=== PATIENT | female | born 1935 | race Caucasian/White ===

== ENCOUNTER 2018-05-21 06:30 | Emergency (ER) | payer MEDICARE, SELFPAY ==
[2018-05-21 06:46] VITALS: BP 137/77; PULSE 74; RESP 18; TEMP 36.9; O2SAT 100; BMI 23.0
--- NOTE | 2018-05-21 07:38 | ED_ITS ---
HPI - Epistaxis General Chief complaint: Nasal Problem Stated complaint: nosebleed, not on blood thinners Time Seen by Provider: 05/21/18 07:37 Source: patient Mode of arrival: ambulatory Limitations: no limitations History of Present Illness HPI Narrative: The patient developed right-sided epistaxis yesterday. She has no history of bleeding problems. She takes prophylactic baby aspirin, she is not otherwise anticoagulated. She is treated for hypertension. She has a bovine valve in place. She has no history of epistaxis. She has been unable to stop the bleeding at home with direct pressure. Related Data Home Medications Medication Instructions Recorded Confirmed conjugated estrogens [Premarin] 1 appful VAGINAL QDAY #0 11/04/16 estradiol 1 mg PO QDAY #0 11/04/16 lorazepam 0.5 mg PO TID PRN #0 11/04/16 docusate sodium 200 mg PO BID #0 11/28/16 VITAMIN D (Vitamin D3) 1,000 iu PO QDAY #0 12/24/16 tramadol 0 mg PO Q6HP PRN #0 03/25/17 melatonin 8 mg PO HS #0 06/17/17 [KRILL OIL] 500 mg PO QDAY #0 11/15/17 cephalexin 500 mg PO QID #0 11/15/17 magnesium oxide 250 mg PO #0 11/15/17 Previous Rx's Medication Instructions Recorded aspirin 81 mg PO BID #60 12/12/17 oxycodone 1 - 2 tab PO Q4-6HP PRN #90 tab 12/12/17 Allergies Allergy/AdvReac Type Severity Reaction Status Date / Time Iodine and Iodide Containing Allergy Mild HIVES Unverified 02/26/18 12:30 Produc WELTS aspirin [ASPIRIN] AdvReac Severe HX GI BLEED Unverified 02/26/18 12:30 adhesive tape [ADHESIVE TAPE] AdvReac Mild ITCH Unverified 02/26/18 12:30 codeine [CODEINE] AdvReac Mild NAUSEA/DIZZY, Unverified 02/26/18 12:30 CAN TAKE OXYCODINE, HYDROCODONE gabapentin [GABAPENTIN] AdvReac Mild DIZZINESS, Unverified 02/26/18 12:30 DIDN'T FEEL GOOD IRON INFUSION Allergy Severe ANAPHYLAXIS Uncoded 02/26/18 12:30 Review of Systems Review of Systems All systems reviewed & are unremarkable except as noted in HPI and below Constitutional Denies chills, Denies fever(s), Denies headache(s), Denies lethargy and Denies weakness Eyes Denies change in vision and Denies loss of vision ENT Ears, Nose, Mouth, and Throat: Denies facial pain, Denies headache(s), Reports epistaxis, Denies nasal congestion, Denies nasal discharge and Denies nasal trauma Cardiovascular Denies chest pain, Denies irregular heart rhythm, Denies lightheadedness, Denies palpitations and Denies orthopnea Neurologic Denies headache(s), Denies loss of vision and Denies weakness Endocrine Denies palpitations [facility] Medical History Hypertension (Acute) Surgical History History of aortic valve replacement (Acute) History of mitral valve replacement (Acute) Exam Initial Vital Signs Initial Vital Signs: Vital Signs Temperature 98.4 F 05/21/18 06:46 Pulse Rate 74 05/21/18 06:46 Respiratory Rate 18 05/21/18 06:46 Blood Pressure 137/77 H 05/21/18 06:46 Pulse Oximetry 100 05/21/18 06:46 Const General: cooperative, healthy appearing, comfortable and well developed Nutritional Appearance: well nourished Orientation: alert, awake, oriented x3 and not confused [facility] [place] Head: normal to inspection, normocephalic and atraumatic Ears: hearing grossly normal bilaterally, TM normal on the right and TM normal on the left Nose: external nose normal and nares normal ( small amount of blood in the right nares. There is a site of bleeding in the anterior septum, but no current bleeding. The left nares is normal.) Face and sinus: normal facial exam Mouth: oral mucosae normal and oropharynx normal Eyes Pupils: PERRL EOM: EOM intact bilaterally Neck Neck: normal visual inspection, trachea midline and No lymphadenopathy Procedures Epistaxis Control Time Out Performed: Yes Nostril: right Nose Prepped With: oxymetazoline Direct Inspection: yes and anterior source identified Cautery Used: silver nitrate Patient Tolerated Procedure: well Complications: other ( None) Course Orders Ordered: Discontinued Medications Oxymetazoline HCl (Afrin) 2 sprays NASAL NOW ONE Stop: 05/21/18 08:12 Last Admin: 05/21/18 08:13 Dose: 2 sprays Vital Signs - 8 hr 07/04/18 06:46 Temperature 98.4 F Pulse Rate 74 Respiratory Rate 18 Blood Pressure 137/77 H Pulse Oximetry 100 Discharge Plan Departure Patient Disposition: Home, Self-Care Clinical Impression: Acute anterior epistaxis Instructions: DI for Nosebleed Activity Restrictions/Additional Instructions: Do not take baby aspirin for the next week. There is a possibility that you may bleed again, return here if you cannot control the bleeding after 30 min of direct pressure. Prescriptions: No Action lorazepam 0.5 MG tablet 0.5 mg PO TID PRNQty: 0 RF: 0 estradiol 1 MG tablet 1 mg PO QDAY Qty: 0 RF: 0 conjugated estrogens [Premarin] 0.625 MG/GM cream 1 appful Vaginal QDAY Qty: 0 RF: 0 docusate sodium 100 MG capsule 200 mg PO BID Qty: 0 RF: 0 VITAMIN D (Vitamin D3) 1,000 iu PO QDAY Qty: 0 RF: 0 tramadol 50 MG tablet PO Q6HP PRNQty: 0 RF: 0 melatonin 5 MG tablet 8 mg PO HS Qty: 0 RF: 0 magnesium oxide 250 MG tablet 250 mg PO Qty: 0 RF: 0 [KRILL OIL] 500 mg PO QDAY Qty: 0 RF: 0 cephalexin 500 MG tablet 500 mg PO QID Qty: 0 RF: 0 aspirin 81 MG tablet,delayed release (DR/EC) 81 mg PO BID Qty: 60 RF: 0 oxycodone 5 MG tablet 1 - 2 tab PO Q4-6HP PRNQty: 90 RF: 0
[2018-05-21] MEDS: OXYMETAZOLINE NASAL SPRAY 15 ML 2 SPRAYS NASAL (08:13)
[2018-05-21 08:47] VITALS: BP 140/82; PULSE 65; RESP 14; O2SAT 96
== END 2018-05-21 09:02 | disposition home or self-care (01) ==
PROVIDERS: Emergency Provider Emergency Medicine; PCP Internal Medicine
DX: R04.0 Epistaxis (principal)
CPT/HCPCS: 17250; 30901; 99282

== ENCOUNTER → 2018-05-23 14:21 | Outpatient (CLI) | payer MEDICARE, SELFPAY ==
[2018-05-23 14:36] LABS: Add Manual Diff / Slide Review NO; Basophils Percent Auto 0.6 % (0-2); Eosinophils Percent Auto 1.6 % (2-4); Hemoglobin 11.8 g/dL (12.0-16.0); Lymphocytes Percent Auto 10.7 % (25-40); Mean Corpuscular HGB Conc 33.6 % (30-36); Mean Corpuscular Volume 98.3 fL (80-100); Neutrophils Absolute Auto 4900 /uL (3000-5900); Neutrophils Percent Auto 80.1 % (50-75); Platelet Count 179 X10^3/uL (150-400); Red Blood Cell Count 3.56 X10^6/uL (4.0-5.2); Red Cell Distribution Width 14.6 % (11.6-14.8); White Blood Cell Count 6.1 X10^3/uL (4.5-11.0)
[2018-05-23 14:55] LABS: Alanine Aminotransferase 26 IU/L (9-52); Albumin 3.9 g/dL (3.5-5.0); Albumin Globulin Ratio 1.3 (1.0-2.8); Alkaline Phosphatase 81 U/L (38-126); Aspartate Aminotransferase 37 IU/L (14-36); BUN Creatinine Ratio 23.8 (6-22); Bilirubin Total 0.5 mg/dL (0.2-1.3); Blood Urea Nitrogen 19 mg/dL (7-17); Calcium 9.2 mg/dL (8.4-10.2); Carbon Dioxide 30 mmol/L (22-32); Chloride 93 mmol/L (98-107); Estimated Glomerular Filt Rate > 60.0 mL/min (>60); Glucose 96 mg/dL (80-110); HEMOLYSIS < 15 (0-50); Potassium 4.7 mmol/L (3.4-5.1); Sodium 130 mmol/L (137-145); Total Protein 6.9 g/dL (6.3-8.2)
[2018-05-23 15:42] LABS: Erythrocyte Sedimentation Rate 10 MM/HR (0-20)
== END ==
PROVIDERS: PCP Internal Medicine; Visit Provider Nurse Practitioner Gerontology
DX: D72.810 Lymphocytopenia (principal)
CPT/HCPCS: 36415; 80053; 85025; 85651

== ENCOUNTER → 2018-05-26 14:22 | Oncology outpatient (ONC) | payer MEDICARE, SELFPAY ==
[2018-05-26 15:08] VITALS: BP 107/72; PULSE 63; RESP 18; TEMP 36.3; O2SAT 95
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
== END ==
PROVIDERS: PCP Internal Medicine; Visit Provider Nurse Practitioner Gerontology
DX: D72.810 Lymphocytopenia (principal); D72.828 Other elevated white blood cell count
CPT/HCPCS: 99214

== ENCOUNTER 2018-08-07 06:33 | Emergency (ER) | payer MEDICARE, SELFPAY ==
[2018-08-07] VITALS (8 sets, daily range): BP systolic 76–154; BP diastolic 37–95; PULSE 64–80; RESP 14–20; TEMP 36.8; O2SAT 92–98; BMI 23.4
--- NOTE | 2018-08-07 06:36 | DI.RAD.S_ITS ---
PROCEDURE: XR CHEST 1V INDICATIONS: chest pain TECHNIQUE: One view of the chest was acquired. COMPARISON: [facility], CHEST 1 VIEW, 02/12/2016, 19:58. [facility], , CHEST 2 VIEW, 04/30/2016, 13:20. [facility], , CHEST 2 VIEW, 08/03/2016, 11:05. FINDINGS: Surgical changes and devices: A pacer device is seen. cervical spine and thoracolumbar spine fixation hardware can be seen. Sternotomy wires and mediastinal clips are seen and there is aortic valve prosthesis. Cholecystectomy clips are seen. Lungs and pleura: An incomplete inspiratory result is noted, causing a crowded appearance to the lung markings. No focal infiltrates are seen. No pneumothorax or significant pleural effusions are seen. Mediastinum: The cardiac contours are within normal limits. The aorta demonstrates calcification and tortuosity. Bones and chest wall: No suspicious bony lesions. Age-appropriate bony degenerative changes are seen. Mild dextroconvex scoliotic curvature is seen. Overlying soft tissues appear unremarkable. IMPRESSION: Limited portable chest examination, without a significant cardiopulmonary abnormality identified. Postoperative and degenerative changes. Dictated by: Lavelle Orellana M.D. on 08/07/2018 at 7:49 Approved by: Lavelle Orellana M.D. on 08/07/2018 at 7:51
[2018-08-07 07:08] LABS: Prothrombin Time 11.2 SECONDS (10.1-12.7)
--- NOTE | 2018-08-07 07:09 | ED.CHESTPAIN ---
HPI - Chest Pain General Chief Complaint: Chest Pain Stated Complaint: chest pain Time Seen by Provider: 08/07/18 06:34 Source: patient and family () Mode of arrival: ambulatory Limitations: no limitations History of Present Illness HPI narrative: This is an 83-year-old female who comes to the emergency department with complaint of chest heaviness. She states she woke up at 4:00 a.m. with symptoms. It then improved, then returned improved again and then return for a 3rd time. They elected to come to the emergency department. On her walk out to the car her legs felt sort of weak but she did feel like she had any more chest pressure. She has sort of left-sided chest pressure it does not radiate to her back but does go down her left arm and side. She has had chronic left arm pain that she relates to her neck but states that this chest pressure is different. She has not been having any new shortness of breath she normally has a little bit with exertion but it has not worsened or changed. She is not having any nausea or vomiting, no diaphoresis. She has not had any other GI issues. She has not had similar symptoms in the past. No syncope or lightheadedness. Um currently it is present but very low level, she states to the will come in waves sometimes for a few minutes and then resolved. Nothing seems to exacerbated or improved in particular. Exertion and rest do not difference. She does have a history of pacemaker placed for cardiac arrhythmias after an aortic and mitral valve replacement which they used a cow valve. She takes an aspirin 81 mg daily she states she has not had her dose today. She has had multiple orthopedic surgeries including a T10 through Lumbar. Hysterectomy, partial left knee replacement and repair of a fractured femur although she no longer has hardware present.. She takes medicine for blood pressure and cholesterol, no diabetes or chronic kidney disease. She does take medication for thyroid. Her blacksmith apprentice is Dr. Abdalla through [facility] and her primary care is Dr. Brodie BLOOM complaint: chest pain Related Data Home Medications Medication Instructions Recorded Confirmed estradiol 1 mg PO QDAY #0 11/04/16 08/07/18 docusate sodium 200 mg PO BID #0 11/28/16 08/07/18 krill oil 500 mg PO QDAY #0 11/15/17 08/07/18 magnesium oxide 250 mg PO DAILY #0 11/15/17 08/07/18 aspirin 81 mg PO DAILY 05/26/18 08/07/18 atorvastatin [Lipitor] 20 mg PO DAILY 05/26/18 08/07/18 furosemide [Lasix] 20 mg PO DAILY 05/26/18 08/07/18 montelukast [Singulair] 10 mg PO QPM 05/26/18 08/07/18 acetaminophen [Tylenol Extra 2 tab PO Q6H PRN 08/07/18 08/07/18 Strength] albuterol sulfate [Ventolin HFA] 2 puff INHALATION Q4H PRN 08/07/18 08/07/18 amlodipine 5 mg PO BEDTIME 08/07/18 08/07/18 ascorbic acid (vitamin C) 250 mg PO DAILY 08/07/18 08/07/18 cholecalciferol (vitamin D3) 2,000 unit PO DAILY 08/07/18 08/07/18 [Vitamin D3] guaifenesin [Mucinex] 1 tab PO PRN PRN 08/07/18 08/07/18 ketorolac 1 drp OPHTHALMIC (EYE) DIRECTED 08/07/18 08/07/18 levothyroxine 1 tab PO 6XW 08/07/18 08/07/18 lisinopril 5 mg PO DAILY 08/07/18 08/07/18 loratadine [Claritin] 10 mg PO DAILY PRN 08/07/18 08/07/18 lorazepam 0.25 mg PO DAILY 08/07/18 08/07/18 melatonin 9 mg PO BEDTIME 08/07/18 08/07/18 metoprolol tartrate 12.5 mg PO BID 08/07/18 08/07/18 ofloxacin 1 dose OPHTHALMIC (EYE) DIRECTED 08/07/18 08/07/18 pantoprazole 40 mg PO DAILY 08/07/18 08/07/18 polymyxin B sulf-trimethoprim 1 drp OPHTHALMIC (EYE) QID 08/07/18 08/07/18 prednisolone acetate 1 dose OPHTHALMIC (EYE) DIRECTED 08/07/18 08/07/18 saliva stimulant comb. no.7 1 applic PO DIRECTED 08/07/18 08/07/18 [Biotene Oralbalance (glycerin)] saliva substitute combo no.9 15 ml PO DAILY 08/07/18 08/07/18 [Biotene Dry Mouth Oral Rinse] tramadol 25 - 50 mg PO Q8-12H PRN 08/07/18 08/07/18 Allergies Allergy/AdvReac Type Severity Reaction Status Date / Time Iodine and Iodide Containing Allergy Mild HIVES Verified 08/07/18 06:44 Produc WELTS aspirin [ASPIRIN] AdvReac Severe HX GI BLEED Verified 08/07/18 06:44 adhesive tape [ADHESIVE TAPE] AdvReac Mild ITCH Verified 08/07/18 06:44 codeine [CODEINE] AdvReac Mild NAUSEA/DIZZY, Verified 08/07/18 06:44 CAN TAKE OXYCODINE, HYDROCODONE gabapentin [GABAPENTIN] AdvReac Mild DIZZINESS, Verified 08/07/18 06:44 DIDN'T FEEL GOOD escitalopram AdvReac Verified 08/07/18 06:45 IRON INFUSION Allergy Severe ANAPHYLAXIS Uncoded 02/26/18 12:30 Review of Systems Review of Systems All systems reviewed & are unremarkable except as noted in HPI and below Constitutional Denies fever(s) ENT Ears, Nose, Mouth, and Throat: Reports neck pain (chronic) Cardiovascular Reports chest pain (pressure), Denies diaphoresis, Denies syncope, Denies rapid heart rate, Reports edema (occasionally none recently), Reports irregular heart rhythm (occasionally has pacer), Denies lightheadedness, Reports radiating jaw, neck or arm pain, Denies palpitations and Reports dyspnea on exertion (chronic no new change) Respiratory Denies change in phlegm color, Denies cough, Reports dyspnea on exertion (chronic no new change) and Denies wheezing Gastrointestinal Gastrointestinal: Denies abdominal pain, Denies change in bowel habits, Denies diarrhea, Denies nausea and Denies vomiting Musculoskeletal Reports neck pain (chronic) Neurologic Denies syncope Endocrine Denies palpitations Allergic/Immunologic Denies wheezing PFSH Medical History Dyslipidemia (Acute) Hypertension (Acute) Hypothyroid (Acute) Pacemaker (Acute) Surgical History History of aortic valve replacement (Acute) History of mitral valve replacement (Acute) Social History marital status: household members: spouse lives independently: Yes Smoking Status: Former smoker Exam Initial Vital Signs Initial Vital Signs: Vital Signs Temperature 98.2 F 08/07/18 06:48 Pulse Rate 70 08/07/18 06:48 Respiratory Rate 17 08/07/18 06:48 Blood Pressure 154/95 H 08/07/18 06:48 Pulse Oximetry 98 08/07/18 06:48 Const General: cooperative and well developed Nutritional Appearance: well nourished Orientation: alert, awake, oriented x3 and not confused Resp Effort & Inspection: normal respiratory effort, able to speak in complete sentences, no respiratory distress and no use of accessory muscles Auscultation: no bronchovesicular breath sounds, crackles (mild crackles in right base.), lung sounds not diminished, no rales, no rhonchi and no wheezes Cardio Rate: regular rate Rhythm: regular rhythm Heart Sounds: no click, no gallops, no murmurs and no rubs Pulses: normal peripheral pulses Extrem Right lower extremity: foot Details: vascular exam Details: posterior tibial pulse present Details: 2+; no edema Left lower extremity: foot Details: vascular exam Details: posterior tibial pulse present Details: 2+; no edema Course Orders Ordered: Discontinued Medications Acetaminophen (Tylenol) 975 mg PO NOW ONE Stop: 08/07/18 11:18 Last Admin: 08/07/18 12:12 Dose: 975 mg Aspirin (Aspirin) 325 mg PO NOW ONE Stop: 08/07/18 07:32 Last Admin: 08/07/18 07:38 Dose: 325 mg Nitroglycerin (Nitrostat) 0.4 mg SL [id number] PRN PRN Reason: Chest Pain Last Admin: 08/07/18 07:38 Dose: 0.4 mg Sodium Chloride (Normal Saline 0.9%) 500 ml IV NOW ONE Stop: 08/07/18 07:48 Last Admin: 08/07/18 07:49 Dose: 500 ml Tramadol HCl (Ultram) 50 mg PO NOW ONE Stop: 08/07/18 11:18 Last Admin: 08/07/18 12:13 Dose: 50 mg Reevaluation(s) Reevaluation #1: recheck after nitro SL patient chest pain did improve but her pressure dropped. Given 500cc bolus and patient is now improving. Patient states she felt very lightheaded, she denies any headache. Pressure was the 95 systolic Um as fluid boluses running in. Time: 07:55 Consultations Consultation #1: Spoke with Dr. Balderas, he will discuss with Dr. Abdalla patient's own blacksmith apprentice to help make sure she has follow-up in 24-48 hours for an stress testing. Discussed that I was concerned about unstable angina type picture but that patient did not wish to be transferred and we do not have resources her for monitoring for chest pain observation. Time: 11:57 Vital Signs - 8 hr 08/07/18 12:28 Pulse Rate 66 Respiratory Rate 14 Blood Pressure [Right Arm] 120/67 Pulse Oximetry 97 MDM - Chest Pain Differential Diagnosis Likely unstable angina pectoris, atypical chest pain, chest pain and other (NSTEMI) Lab Data Result diagrams: 08/07/18 06:48 08/07/18 06:48 Lab Results 08/07/18 08/07/18 08/07/18 Range/Units 06:48 06:48 06:48 WBC 4.9 (4.5-11.0) X10^3/uL RBC 4.31 (4.0-5.2) X10^6/uL Hgb 13.8 (12.0-16.0) g/dL Hct 40.6 (36-46) % MCV 94.2 (80-100) fL MCH 31.9 (26-34) PG MCHC 33.9 (30-36) % RDW 13.4 (11.6-14.8) % Plt Count 182 (150-400) X10^3/uL Neut % (Auto) 65.6 (50-75) % Lymph % (Auto) 21.3 L (25-40) % [place] % (Auto) 9.2 (3-14) % Eos % (Auto) 3.2 (2-4) % Baso % (Auto) 0.7 (0-2) % Neut # (Auto) 3200 (9419-1679) /uL PT 11.2 (10.1-12.7) SECONDS INR 1.0 (0.9-1.3) APTT 31 (26.4-36.2) SECONDS Sodium 136 L (137-145) mmol/L Potassium 4.8 (3.4-5.1) mmol/L Chloride 95 L (98-107) mmol/L Carbon Dioxide 32 (22-32) mmol/L BUN 17 (7-17) mg/dL Creatinine 0.80 (0.52-1.04) mg/dL Estimated GFR > 60.0 (>60) mL/min BUN/Creatinine Ratio 21.3 (6-22) Glucose 89 (80-110) mg/dL Lactate (0.7-2.1) mmol/L Calcium 10.1 (8.4-10.2) mg/dL Total Bilirubin 0.6 (0.2-1.3) mg/dL AST 37 H (14-36) IU/L ALT 24 (9-52) IU/L Alkaline Phosphatase 76 (38-126) U/L Total Creatine Kinase (30-135) U/L Troponin I 0.032 (0.01-0.034) ng/mL B-Natriuretic Peptide 281.0 H (<100) Total Protein 7.8 (6.3-8.2) g/dL Albumin 4.6 (3.5-5.0) g/dL Globulin 3.2 (1.7-4.1) g/dL Albumin/Globulin Ratio 1.4 (1.0-2.8) 08/07/18 08/07/18 Range/Units 07:50 10:00 WBC (4.5-11.0) X10^3/uL RBC (4.0-5.2) X10^6/uL Hgb (12.0-16.0) g/dL Hct (36-46) % MCV (80-100) fL MCH (26-34) PG MCHC (30-36) % RDW (11.6-14.8) % Plt Count (150-400) X10^3/uL Neut % (Auto) (50-75) % Lymph % (Auto) (25-40) % [place] % (Auto) (3-14) % Eos % (Auto) (2-4) % Baso % (Auto) (0-2) % Neut # (Auto) (9838-6416) /uL PT (10.1-12.7) SECONDS INR (0.9-1.3) APTT (26.4-36.2) SECONDS Sodium (137-145) mmol/L Potassium (3.4-5.1) mmol/L Chloride (98-107) mmol/L Carbon Dioxide (22-32) mmol/L BUN (7-17) mg/dL Creatinine (0.52-1.04) mg/dL Estimated GFR (>60) mL/min BUN/Creatinine Ratio (6-22) Glucose (80-110) mg/dL Lactate 0.7 (0.7-2.1) mmol/L Calcium (8.4-10.2) mg/dL Total Bilirubin (0.2-1.3) mg/dL AST (14-36) IU/L ALT (9-52) IU/L Alkaline Phosphatase (38-126) U/L Total Creatine Kinase 47 (30-135) U/L Troponin I 0.029 (0.01-0.034) ng/mL B-Natriuretic Peptide (<100) Total Protein (6.3-8.2) g/dL Albumin (3.5-5.0) g/dL Globulin (1.7-4.1) g/dL Albumin/Globulin Ratio (1.0-2.8) Urine Dip Bedside Urine Glucose Negative Bedside Urine Bilirubin - Negative Bedside Urine Ketone - Negative Urine Specific Catherine 1.015 Bedside Urine Occult Blood - Negative Bedside Urine pH 7.0 Bedside Urine Protein - Negative Bedside Urine Urobilinogen - Negative Bedside Urine Nitrite - Negative Bedside Urine Leukocytes - Negative Esterase Imaging Data Chest x-ray: Attestation: I personally reviewed and interpreted this imaging study as follows: My impression: The chest x-ray does not show any infiltrate or pneumothorax. Patient appears to have cardiomegaly, she has various foreign bodies consistent with her prior surgeries including back surgery, aortic and mitral valve replacement as well as pacemaker placement. In the left base patient may have a small effusion as there is some blunting of the costophrenic angle but she does have cleared a cardiomegaly which may be the cause. Patient's chest x-ray appears similar to prior from August 03, 2016. Radiologist's impression: Patient: Paula Chin [facility]#: [id number] : 1935Acct:[id number] Age/Sex: 83 / FDate of Service: 08/07/18 Loc: ED Accession Number: [id number] Procedure: XR chest 1V Ordering Provider: Francis Rivas D.O. PROCEDURE: XR CHEST 1V INDICATIONS: chest pain TECHNIQUE: One view of the chest was acquired. COMPARISON: [facility], CHEST 1 VIEW, 02/12/2016, 19:58. [facility], CHEST 2 VIEW, 04/30/2016, 13:20. [facility], CHEST 2 VIEW, 08/03/2016, 11:05. FINDINGS: Surgical changes and devices: A pacer device is seen. cervical spine and thoracolumbar spine fixation hardware can be seen. Sternotomy wires and mediastinal clips are seen and there is aortic valve prosthesis. Cholecystectomy clips are seen. Lungs and pleura: An incomplete inspiratory result is noted, causing a crowded appearance to the lung markings. No focal infiltrates are seen. No pneumothorax or significant pleural effusions are seen. Mediastinum: The cardiac contours are within normal limits. The aorta demonstrates calcification and tortuosity. Bones and chest wall: No suspicious bony lesions. Age-appropriate bony degenerative changes are seen. Mild dextroconvex scoliotic curvature is seen. Overlying soft tissues appear unremarkable. IMPRESSION: Limited portable chest examination, without a significant cardiopulmonary abnormality identified. Postoperative and degenerative changes. Dictated by: Lavelle Orellana M.D. on 08/07/2018 at 7:49 Approved by: Lavelle Orellana M.D. on 08/07/2018 at 7:51 ECG Data Attestation: I personally reviewed and interpreted this ECG as follows: Interpretation: EKG #1 This is atrial paced rhythm with a rate of 68, P are of 360, QRS of 134 and Q Tc of 432. Patient appears to have a right bundle branch block with Q in V1 and V2 and T-wave were of more maladies in V1 through V5. Patient also has a prior EKG from 11/04/2016 which appears similar except for the T-wave inversion in the or V5 with present prior. EKG#2 shows AA sinus rhythm with first-degree block with a rate of 65, P are 310, QRS of 127 and a QTC of 440. Patient appears to have a right bundle branch block with Q-waves in V1 and V2. She also appears to have no new ST segment changes in comparison to her prior EKG this morning. MDM Narrative Medical decision making narrative: Patient story is concerning for unstable angina. She is asymptomatic at this time but we did discuss transfer as we do not have the option for chest pain observation here at [facility]. Patient was notified that we check [facility] does not have any beds. We did try to contact [facility] in [place] and they did not have. Patient defers transfer for S evaluating other hospitals for availability and would prefer to do repeat troponin and close follow up with cardiology. We Discussed that I do not recommend this and that we cannot rule out cardiac causes. Patient is aware. We did contact her cardiology team to set up stress testing the next 24 hr. Patient is to call and let them know but Dr. Balderas will also notify her blacksmith apprentice. Discharge Plan Departure Patient Disposition: Home Clinical Impression: Chest pain Discharge Date/Time: 08/07/18 13:06 Interventions: ED Discharge Assessment Last Done: 08/07/18 13:05 Instructions: DI for Chest Pain Activity Restrictions/Additional Instructions: Follow-up in the next 24 hr with your blacksmith apprentice for recheck. I do recommend that you get a stress test in the last 24-48 hours particularly with her symptoms being concerning for unstable angina. Your lab work got does not show an elevation in troponin or new EKG changes today. Call the cardiology office this afternoon to set up a follow-up appointment time. Continue your home medications as prescribed continue her aspirin daily. Return to the emergency department immediately for recurrent symptoms, syncope, increasing or new chest pain or shortness of breath, persistent vomiting or diaphoresis. Prescriptions: No Action estradiol 1 MG tablet 1 mg PO QDAY Qty: 0 RF: 0 docusate sodium 100 MG capsule 200 mg PO BID Qty: 0 RF: 0 magnesium oxide 250 MG tablet 250 mg PO DAILY Qty: 0 RF: 0 krill oil 500 mg Capsule 500 mg PO QDAY Qty: 0 RF: 0 aspirin 81 MG tablet,delayed release (DR/EC) 81 mg PO DAILY RF: 0 atorvastatin [Lipitor] 20 mg Tablet 20 mg PO DAILY RF: 0 furosemide [Lasix] 20 mg Tablet 20 mg PO DAILY RF: 0 montelukast [Singulair] 10 mg Tablet 10 mg PO QPM RF: 0 ofloxacin 0.3 % drops 1 dose ophthalmic (eye) DIRECTED RF: 0 tramadol 50 mg tablet 25 - 50 mg PO Q8-12H PRN (Reason: Back Pain) RF: 0 ketorolac 0.5 % drops 1 drp ophthalmic (eye) DIRECTED RF: 0 prednisolone acetate 1 % drops,suspension 1 dose ophthalmic (eye) DIRECTED RF: 0 lorazepam 0.5 mg tablet 0.25 mg PO DAILY RF: 0 pantoprazole 40 mg tablet,delayed release (DR/EC) 40 mg PO DAILY RF: 0 polymyxin B sulf-trimethoprim 10,000 unit- 1 mg/mL drops 1 drp ophthalmic (eye) QID RF: 0 lisinopril 5 mg tablet 5 mg PO DAILY RF: 0 albuterol sulfate [Ventolin HFA] 90 mcg/actuation HFA aerosol inhaler 2 puff Inhalation Q4H PRN (Reason: Shortness Of Breath) RF: 0 metoprolol tartrate 25 mg tablet 12.5 mg PO BID RF: 0 melatonin 9 mg PO BEDTIME RF: 0 amlodipine 5 mg Tablet 5 mg PO BEDTIME RF: 0 acetaminophen [Tylenol Extra Strength] 500 mg Tablet 2 tab PO Q6H PRN (Reason: Pain, Moderate) RF: 0 levothyroxine 75 mcg tablet 1 tab PO 6XW RF: 0 ascorbic acid (vitamin C) 250 mg Tablet 250 mg PO DAILY RF: 0 loratadine [Claritin] 10 mg Tablet 10 mg PO DAILY PRN (Reason: Allergy Symptoms) RF: 0 cholecalciferol (vitamin D3) [Vitamin D3] 1,000 unit Tablet 2,000 unit PO DAILY RF: 0 guaifenesin [Mucinex] 600 mg Tablet Extended Release 12hr 1 tab PO PRN PRN (Reason: Congestion) RF: 0 saliva substitute combo no.9 [Biotene Dry Mouth Oral Rinse] Mouthwash 15 ml PO DAILY RF: 0 saliva stimulant comb. no.7 [Biotene Oralbalance (glycerin)] Gel 1 applic PO DIRECTED RF: 0 Referrals: Arnol Kc MD [Primary Care Provider] - Tyler Tobar MD [Physician] -
[2018-08-07 07:11] LABS: PTT Partial Thromboplastin Tim 31 SECONDS (26.4-36.2)
[2018-08-07 07:13] LABS: Alanine Aminotransferase 24 IU/L (9-52); Albumin 4.6 g/dL (3.5-5.0); Albumin Globulin Ratio 1.4 (1.0-2.8); Alkaline Phosphatase 76 U/L (38-126); Aspartate Aminotransferase 37 IU/L (14-36); BUN Creatinine Ratio 21.3 (6-22); Bilirubin Total 0.6 mg/dL (0.2-1.3); Blood Urea Nitrogen 17 mg/dL (7-17); Calcium 10.1 mg/dL (8.4-10.2); Carbon Dioxide 32 mmol/L (22-32); Chloride 95 mmol/L (98-107); Estimated Glomerular Filt Rate > 60.0 mL/min (>60); Globulin 3.2 g/dL (1.7-4.1); Glucose 89 mg/dL (80-110); HEMOLYSIS < 15 (0-50); Potassium 4.8 mmol/L (3.4-5.1); Sodium 136 mmol/L (137-145); Total Protein 7.8 g/dL (6.3-8.2)
[2018-08-07 07:15] LABS: Add Manual Diff / Slide Review NO; Basophils Percent Auto 0.7 % (0-2); Eosinophils Percent Auto 3.2 % (2-4); Hematocrit 40.6 % (36-46); Hemoglobin 13.8 g/dL (12.0-16.0); Lymphocytes Percent Auto 21.3 % (25-40); Mean Corpuscular HGB Conc 33.9 % (30-36); Mean Corpuscular Hemoglobin 31.9 PG (26-34); Mean Corpuscular Volume 94.2 fL (80-100); Monocytes Percent Auto 9.2 % (3-14); Neutrophils Absolute Auto 3200 /uL (3000-5900); Neutrophils Percent Auto 65.6 % (50-75); Platelet Count 182 X10^3/uL (150-400); Red Blood Cell Count 4.31 X10^6/uL (4.0-5.2); Red Cell Distribution Width 13.4 % (11.6-14.8); White Blood Cell Count 4.9 X10^3/uL (4.5-11.0)
[2018-08-07 07:24] LABS: Troponin I 0.032 ng/mL (0.01-0.034)
[2018-08-07] MEDS: ASPIRIN 325 MG TABLET PO (07:38)
[2018-08-07] MEDS: NITROGLYCERIN 0.4 MG SL TAB SL (07:38)
[2018-08-07] MEDS: SODIUM CHLORIDE 0.9% 100 ML 500 ML IV (07:49)
--- NOTE | 2018-08-07 07:50 | PC.NURSE ---
Nitro Sl helped pts pain but caused decreased BP 76/37. Fluids per VO
[2018-08-07 08:14] LABS: Lactate (Lactic Acid) 0.7 mmol/L (0.7-2.1)
--- NOTE | 2018-08-07 09:18 | PC.NURSE ---
Resting in room. Stable. Use of commode. Will have repeat Trop and ekg at 10am
[2018-08-07 11:14] LABS: Creatine Kinase 47 U/L (30-135)
[2018-08-07 11:27] LABS: Troponin I 0.029 ng/mL (0.01-0.034)
[2018-08-07] MEDS: ACETAMINOPHEN 325 MG TABLET 975 MG PO (12:12)
[2018-08-07] MEDS: TRAMADOL 50 MG TABLET PO (12:13)
== END 2018-08-07 13:06 | disposition home or self-care (01) ==
PROVIDERS: Emergency Medicine; Emergency Provider Emergency Medicine; PCP Internal Medicine
DX: R07.89 Other chest pain (principal)
CPT/HCPCS: 36415; 36591; 71045; 80053; 81003; 82550; 82553; 83605; 83880; 84484; 85025; 85610; 85730; 93005; 96374; 99283; 99285

== ENCOUNTER → 2019-02-17 12:38 | Outpatient (CLI) | payer MEDICARE, SELFPAY ==
--- NOTE | 2019-02-17 | DI.RAD.S_ITS ---
PROCEDURE: FL UPPER GI W AIR INDICATIONS: GERD COMPARISON: [facility], CT, CT ANGIO CHEST PE, 12/28/2017, 2:21. [facility], CR, XR CHEST 1V, 08/07/2018, 6:39. FINDINGS: KUB: Preprocedural wellness program coordinator film demonstrates a normal bowel gas pattern. No suspicious abdominal calcifications. Visualized solid organ contours appear normal. Bony structures appear unremarkable. Note is made of upper thoracic spine fusion and thoracolumbar spine fusion. Severe scoliosis. There is a cardiac pacemaker. Patient had a sternotomy and a cardiac valve prosthesis. Esophagus: Esophageal mucosa is normal on air-contrast views. On single-contrast views, there is severe esophageal dysmotility with corkscrew appearance. The gastroesophageal junction appears narrowed. No diverticula. There is a small paraesophageal hiatal hernia . No elicited gastroesophageal reflux. There is obstruction of calibrated barium tablet at the esophagus. Stomach: The stomach is normally distensible, with normal rugal fold thickness. No mucosal masses or ulcers. Pylorus and duodenal bulb appear normal in morphology. Duodenal folds are normal in thickness as well. IMPRESSION: 1. Limited examination due to multiple surgical hardware. 2. Severe esophageal dysmotility. 3. There is narrowing at the gastroesophageal junction and obstruction of calibrated barium tablet. This may be secondary to stricture or obstructing mass. Recommend upper endoscopy for followup evaluation. 4. Small paraesophageal hiatal hernia. Dictated by: Sylvie Kirby M.D. on 02/17/2019 at 14:29 Approved by: Sylvie Kirby M.D. on 02/17/2019 at 17:51
== END ==
PROVIDERS: PCP Physician Assistant; Visit Provider Physician Assistant
DX: K21.9 Gastro-esophageal reflux disease without esophagitis (principal); K22.4 Dyskinesia of esophagus; K44.9 Diaphragmatic hernia without obstruction or gangrene
CPT/HCPCS: 74247

== ENCOUNTER → 2019-03-18 12:18 | Outpatient (CLI) | payer MEDICARE, SELFPAY ==
[2019-03-18 14:19] LABS: Clostridium Difficile Tox PCR Negative for C. diff
== END ==
PROVIDERS: PCP Physician Assistant; Visit Provider Physician Assistant
DX: R19.7 Diarrhea, unspecified (principal)
CPT/HCPCS: 87045; 87177; 87493; 87899

== ENCOUNTER 2019-03-23 14:28 | Emergency (ER) | payer MEDICARE, SELFPAY ==
[2019-03-23 14:31] VITALS: BP 160/91; PULSE 67; RESP 20; TEMP 36.7; O2SAT 96
--- NOTE | 2019-03-23 16:37 | ED_ITS ---
HPI - Nausea/Vomiting/Diarrhea General Chief complaint: Nausea/Vomiting/Diarrhea Stated complaint: dehydrated Time Seen by Provider: 03/23/19 16:37 Source: patient Mode of arrival: ambulatory Limitations: no limitations History of Present Illness HPI Narrative: Patient is an 84-year-old female who was sent over by her primary doctor for IV fluid secondary to ?dehydration? patient states that she has had diarrhea for the past month. She states that her primary doctor has been working her up for this. Does not appear to be an infectious etiology. The patient states she thinks it is ?dietary ?she is still tolerating oral intake. Was here for IV fluids. Related Data Home Medications Medication Instructions Recorded Confirmed estradiol 1 mg PO DAILY #0 11/04/16 03/23/19 krill oil 500 mg PO DAILY #0 11/15/17 03/23/19 aspirin 81 mg PO BID 05/26/18 03/23/19 atorvastatin [Lipitor] 20 mg PO DAILY 05/26/18 03/23/19 furosemide [Lasix] 40 mg PO QAM 05/26/18 03/23/19 montelukast [Singulair] 10 mg PO QPM 05/26/18 03/23/19 acetaminophen [Tylenol Extra 1 tab PO BID 08/07/18 03/23/19 Strength] albuterol sulfate [Ventolin HFA] 2 puff INHALATION Q4H PRN 08/07/18 03/23/19 ascorbic acid (vitamin C) 250 mg PO DAILY 08/07/18 03/23/19 levothyroxine 1 tab PO 6XW 08/07/18 03/23/19 lorazepam See Rx Instructions .ROUTE .COMPLEX 08/07/18 03/23/19 metoprolol tartrate 25 mg PO BID 08/07/18 03/23/19 pantoprazole 40 mg PO DAILY 08/07/18 03/23/19 Hair,Skin and Nails 1 cap PO DAILY 03/23/19 03/23/19 Probiotic 1 cap PO DAILY 03/23/19 03/23/19 Turmeric 500mg/Stefania 50mg 1 cap PO QAM 03/23/19 03/23/19 cholecalciferol (vitamin D3) 1,000 unit PO DAILY 03/23/19 03/23/19 [Vitamin D3] cyanocobalamin (vitamin B-12) 5,000 mcg SUBLINGUAL DAILY 03/23/19 03/23/19 [Vitamin B-12] hydrocodone-acetaminophen 1 tab PO TID 03/23/19 03/23/19 magnesium glycinate 200 mg PO BID 03/23/19 03/23/19 melatonin 10 mg PO BEDTIME PRN 03/23/19 03/23/19 rosuvastatin 5 mg PO DAILY 03/23/19 03/23/19 saliva substitute combo no.9 1 dose PO PRN PRN 03/23/19 03/23/19 [Biotene Dry Mouth Oral Rinse] Allergies Allergy/AdvReac Type Severity Reaction Status Date / Time Iodine and Iodide Containing Allergy Mild HIVES Verified 08/07/18 06:44 Produc WELTS aspirin [ASPIRIN] AdvReac Severe HX GI BLEED Verified 08/07/18 06:44 adhesive tape [ADHESIVE TAPE] AdvReac Mild ITCH Verified 08/07/18 06:44 codeine [CODEINE] AdvReac Mild NAUSEA/DIZZY, Verified 08/07/18 06:44 CAN TAKE OXYCODINE, HYDROCODONE gabapentin [GABAPENTIN] AdvReac Mild DIZZINESS, Verified 08/07/18 06:44 DIDN'T FEEL GOOD escitalopram AdvReac Verified 08/07/18 06:45 IRON INFUSION Allergy Severe ANAPHYLAXIS Uncoded 02/26/18 12:30 Review of Systems Constitutional Denies fever(s) Cardiovascular Denies chest pain and Denies dyspnea Respiratory Denies dyspnea Gastrointestinal Gastrointestinal: Denies abdominal pain, Reports diarrhea, Denies nausea and Denies vomiting Musculoskeletal Denies myalgias and Denies arthralgias Integumentary/Breasts Denies rash Neurologic Denies behavioral changes Psychiatric Denies behavioral changes Hematologic/Lymphatic Denies easy bleeding and Denies easy bruising [facility] Medical History Dyslipidemia (Acute) Hypertension (Acute) Hypothyroid (Acute) Pacemaker (Acute) Surgical History (Updated 05/26/18 @ 15:35 by MOHINDER Aleman) History of aortic valve replacement (Acute) History of mitral valve replacement (Acute) Social History marital status: household members: spouse lives independently: Yes Smoking Status: Former smoker Social History (Reviewed 03/23/19 @ 18:31 by COBY Li marital status: household members: spouse lives independently: Yes Smoking Status: Former smoker Exam Initial Vital Signs Initial Vital Signs: Vital Signs Temperature 98.1 F 03/23/19 14:31 Pulse Rate 67 03/23/19 14:31 Respiratory Rate 20 03/23/19 14:31 Blood Pressure 160/91 H 03/23/19 14:31 Pulse Oximetry 96 03/23/19 14:31 Const General: cooperative, well developed, well groomed and No acute distress Orientation: alert and awake HENMT Head: normal to inspection Resp Effort & Inspection: normal respiratory effort Cardio Rate: regular rate GI Inspection: non-distended Palpation: soft Skin Lesions: no lesions Rashes: no rashes Neuro General: alert and awake Cognition: normal cognition Speech: speech normal Psych Appearance: well kempt Mental Status: mental status grossly normal Attitude: cooperative Thought Content: normal Course Orders Ordered: ED Orders 03/23/19 16:45 Basic Metabolic Panel Stat Complete Blood Count AUTO DIFF Stat Discontinued Medications Sodium Chloride (Normal Saline 0.9%) 1,000 mls @ 1,000 mls/hr IV BOLUS ONE Stop: 03/23/19 17:39 Vital Signs - 8 hr 03/23/19 14:31 03/23/19 18:17 Temperature 98.1 F Pulse Rate 67 59 L Respiratory Rate 20 Blood Pressure 160/91 H Blood Pressure [Right Arm] 143/101 H Pulse Oximetry 96 97 MDM - Nausea/Vomiting/Diarrhea Lab Data Attestation: I reviewed the patient's lab results. Result diagrams: 03/23/19 16:45 03/23/19 16:45 Lab Results 03/23/19 03/23/19 Range/Units 16:45 16:45 WBC 6.9 (4.5-11.0) X10^3/uL RBC 4.71 (4.0-5.2) X10^6/uL Hgb 13.6 (12.0-16.0) g/dL Hct 42.7 (36-46) % MCV 90.6 (80-100) fL MCH 28.8 (26-34) PG MCHC 31.7 (30-36) % RDW 15.5 H (11.6-14.8) % Plt Count 264 (150-400) X10^3/uL Neut % (Auto) 83.1 H (50-75) % Lymph % (Auto) 9.0 L (25-40) % [place] % (Auto) 5.9 (3-14) % Eos % (Auto) 1.3 L (2-4) % Baso % (Auto) 0.7 (0-2) % Neut # (Auto) 5700 (8631-6524) /uL Lymph # (Auto) 600 L (9816-5176) /uL [place] # (Auto) 400 (0-900) /uL Eos # (Auto) 100 (0-450) /uL Baso # (Auto) 0 (0-100) /uL Sodium 132 L (137-145) mmol/L Potassium 5.1 (3.4-5.1) mmol/L Chloride 91 L (98-107) mmol/L Carbon Dioxide 33 H (22-32) mmol/L BUN 18 H (7-17) mg/dL Creatinine 0.80 (0.52-1.04) mg/dL Estimated GFR > 60.0 (>60) mL/min BUN/Creatinine Ratio 22.5 H (6-22) Glucose 105 (80-110) mg/dL Calcium 9.6 (8.4-10.2) mg/dL MDM Narrative Medical decision making narrative: Patient was given IV fluids here in the emergency department. Labs were drawn for completeness of workup. She has had diarrhea for the past month however is being worked up for this by her primary doctor. She is tolerating oral intake. Will hold on further workup for now. Patient was given return precautions and follow-up instructions. Discharge Plan Departure Patient Disposition: Home Clinical Impression: Diarrhea Qualifiers: Diarrhea type: unspecified type Qualified Code(s): R19.7 - Diarrhea, unspecified Instructions: Diarrhea (Alternative Therapy) Activity Restrictions/Additional Instructions: Continue to take all of your medications as directed. Continue to keep all of your follow-up appointments with your primary provider. Return to the emergency department for any new or worsening symptoms Prescriptions: No Action estradiol 1 MG tablet 1 mg PO DAILY Qty: 0 RF: 0 krill oil 500 mg Capsule 500 mg PO DAILY Qty: 0 RF: 0 hydrocodone-acetaminophen 5-325 mg tablet 1 tab PO TID RF: 0 rosuvastatin 5 mg tablet 5 mg PO DAILY RF: 0 cholecalciferol (vitamin D3) [Vitamin D3] 1,000 unit Capsule 1,000 unit PO DAILY RF: 0 magnesium glycinate 100 mg Tablet 200 mg PO BID RF: 0 Vitamin B-12 5,000 mcg Tablet, Sublingual 5,000 mcg Sublingual DAILY RF: 0 melatonin 10 mg Tablet 10 mg PO BEDTIME PRN (Reason: Sleep) RF: 0 Biotene Dry Mouth Oral Rinse Mouthwash 1 dose PO PRN PRN (Reason: Dry Mouth) RF: 0 Hair,Skin and Nails 1 cap PO DAILY RF: 0 Probiotic 1 cap PO DAILY RF: 0 Turmeric 500mg/Stefania 50mg capsule 1 cap PO QAM RF: 0 aspirin 81 MG tablet,delayed release (DR/EC) 81 mg PO BID RF: 0 atorvastatin [Lipitor] 20 mg Tablet 20 mg PO DAILY RF: 0 furosemide [Lasix] 20 mg Tablet 40 mg PO QAM RF: 0 montelukast [Singulair] 10 mg Tablet 10 mg PO QPM RF: 0 lorazepam 0.5 mg tablet See Rx Instructions .ROUTE .COMPLEX RF: 0 pantoprazole 40 mg tablet,delayed release (DR/EC) 40 mg PO DAILY RF: 0 albuterol sulfate [Ventolin HFA] 90 mcg/actuation HFA aerosol inhaler 2 puff Inhalation Q4H PRN (Reason: Shortness Of Breath) RF: 0 metoprolol tartrate 25 mg tablet 25 mg PO BID RF: 0 acetaminophen [Tylenol Extra Strength] 500 mg Tablet 1 tab PO BID RF: 0 levothyroxine 75 mcg tablet 1 tab PO 6XW RF: 0 ascorbic acid (vitamin C) 250 mg Tablet 250 mg PO DAILY RF: 0 Referrals: Annelise Calloway PA-C [Primary Care Provider] -
[2019-03-23 16:59] LABS: Add Manual Diff / Slide Review NO; Basophils Absolute Auto 0 /uL (0-100); Basophils Percent Auto 0.7 % (0-2); Eosinophils Absolute Auto 100 /uL (0-450); Eosinophils Percent Auto 1.3 % (2-4); Hematocrit 42.7 % (36-46); Hemoglobin 13.6 g/dL (12.0-16.0); Lymphocytes Absolute Auto 600 /uL (1100-4500); Mean Corpuscular HGB Conc 31.7 % (30-36); Mean Corpuscular Hemoglobin 28.8 PG (26-34); Mean Corpuscular Volume 90.6 fL (80-100); Monocytes Absolute Auto 400 /uL (0-900); Monocytes Percent Auto 5.9 % (3-14); Neutrophils Absolute Auto 5700 /uL (1500-7000); Neutrophils Percent Auto 83.1 % (50-75); Platelet Count 264 X10^3/uL (150-400); Red Blood Cell Count 4.71 X10^6/uL (4.0-5.2); Red Cell Distribution Width 15.5 % (11.6-14.8); White Blood Cell Count 6.9 X10^3/uL (4.5-11.0)
[2019-03-23 17:04] LABS: BUN Creatinine Ratio 22.5 (6-22); Blood Urea Nitrogen 18 mg/dL (7-17); Calcium 9.6 mg/dL (8.4-10.2); Carbon Dioxide 33 mmol/L (22-32); Chloride 91 mmol/L (98-107); Estimated Glomerular Filt Rate > 60.0 mL/min (>60); Glucose 105 mg/dL (80-110); HEMOLYSIS 17 (0-50); Potassium 5.1 mmol/L (3.4-5.1); Sodium 132 mmol/L (137-145)
[2019-03-23] MEDS: SODIUM CHLORIDE 0.9% 1,000 ML 1000 ML IV (17:45)
[2019-03-23 18:17] VITALS: BP 143/101; PULSE 59; O2SAT 97
[2019-03-23 18:43] VITALS: BP 167/91; PULSE 64; RESP 12; O2SAT 94
== END 2019-03-23 18:43 | disposition home or self-care (01) ==
PROVIDERS: Emergency Provider Emergency Medicine; PCP Physician Assistant
DX: R19.7 Diarrhea, unspecified (principal); E86.0 Dehydration
CPT/HCPCS: 36591; 80048; 85025; 96360; 99283

== ENCOUNTER → 2019-05-12 13:43 | Outpatient (CLI) | payer MEDICARE, SELFPAY ==
[2019-05-12 15:00] LABS: Add Manual Diff / Slide Review NO; Basophils Absolute Auto 0 /uL (0-100); Basophils Percent Auto 0.8 % (0-2); Eosinophils Absolute Auto 100 /uL (0-450); Eosinophils Percent Auto 1.9 % (2-4); Hematocrit 41.2 % (36-46); Hemoglobin 13.3 g/dL (12.0-16.0); Lymphocytes Absolute Auto 600 /uL (1100-4500); Lymphocytes Percent Auto 10.4 % (25-40); Mean Corpuscular HGB Conc 32.3 % (30-36); Mean Corpuscular Hemoglobin 28.6 PG (26-34); Mean Corpuscular Volume 88.5 fL (80-100); Monocytes Absolute Auto 400 /uL (0-900); Monocytes Percent Auto 7.2 % (3-14); Neutrophils Absolute Auto 4700 /uL (1500-7000); Neutrophils Percent Auto 79.7 % (50-75); Platelet Count 240 X10^3/uL (150-400); Red Blood Cell Count 4.66 X10^6/uL (4.0-5.2); Red Cell Distribution Width 15.7 % (11.6-14.8); White Blood Cell Count 5.9 X10^3/uL (4.5-11.0)
[2019-05-12 15:21] LABS: Alanine Aminotransferase 18 IU/L (9-52); Albumin 4.2 g/dL (3.5-5.0); Albumin Globulin Ratio 1.1 (1.0-2.8); Alkaline Phosphatase 120 U/L (38-126); Amylase 69 U/L (30-110); Aspartate Aminotransferase 45 IU/L (14-36); BUN Creatinine Ratio 27.5 (6-22); Bilirubin Total 0.5 mg/dL (0.2-1.3); Blood Urea Nitrogen 22 mg/dL (7-17); Calcium 9.7 mg/dL (8.4-10.2); Carbon Dioxide 33 mmol/L (22-32); Chloride 91 mmol/L (98-107); Estimated Glomerular Filt Rate > 60.0 mL/min (>60); Globulin 3.7 g/dL (1.7-4.1); Glucose 106 mg/dL (80-110); HEMOLYSIS < 15 (0-50); Lipase 47 U/L (23-300); Potassium 4.8 mmol/L (3.4-5.1); Sodium 133 mmol/L (137-145); Total Protein 7.9 g/dL (6.3-8.2)
[2019-05-12 15:32] LABS: B Type Natriuretic Peptide 411 (<100)
== END ==
PROVIDERS: PCP Internal Medicine; Visit Provider Internal Medicine
DX: I48.2 Chronic atrial fibrillation (principal); R13.10 Dysphagia, unspecified; E87.5 Hyperkalemia; E87.1 Hypo-osmolality and hyponatremia
CPT/HCPCS: 36415; 80053; 82150; 82728; 83690; 83880; 85025

== ENCOUNTER → 2019-06-04 15:53 | Outpatient (CLI) | payer MEDICARE, SELFPAY ==
[2019-06-04 16:41] LABS: Add Manual Diff / Slide Review NO; Basophils Absolute Auto 100 /uL (0-100); Eosinophils Absolute Auto 100 /uL (0-450); Hematocrit 39.9 % (36-46); Hemoglobin 12.8 g/dL (12.0-16.0); Lymphocytes Absolute Auto 500 /uL (1100-4500); Lymphocytes Percent Auto 8.4 % (25-40); Mean Corpuscular HGB Conc 32.1 % (30-36); Mean Corpuscular Hemoglobin 28.6 PG (26-34); Mean Corpuscular Volume 89.1 fL (80-100); Monocytes Absolute Auto 500 /uL (0-900); Neutrophils Absolute Auto 5000 /uL (1500-7000); Neutrophils Percent Auto 81.6 % (50-75); Platelet Count 211 X10^3/uL (150-400); Red Blood Cell Count 4.48 X10^6/uL (4.0-5.2); Red Cell Distribution Width 15.7 % (11.6-14.8); White Blood Cell Count 6.1 X10^3/uL (4.5-11.0)
[2019-06-04 17:12] LABS: B Type Natriuretic Peptide 769 (<100)
[2019-06-04 17:53] LABS: Sodium Urine Random 59 mmol/L (30-90)
[2019-06-04 17:55] LABS: BUN Creatinine Ratio 31.4 (6-22); Blood Urea Nitrogen 22 mg/dL (7-17); Calcium 9.9 mg/dL (8.4-10.2); Carbon Dioxide 34 mmol/L (22-32); Chloride 91 mmol/L (98-107); Estimated Glomerular Filt Rate > 60.0 mL/min (>60); Glucose 108 mg/dL (80-110); HEMOLYSIS < 15 (0-50); Sodium 133 mmol/L (137-145)
[2019-06-06 15:50] LABS: Osmolality Urine 258 mOsm/kg (50-1200)
[2019-06-09 17:03] LABS: Osmolality, Serum 283 mosm/kg (260-310)
== END ==
PROVIDERS: PCP Internal Medicine; Visit Provider Internal Medicine
DX: E22.2 Syndrome of inappropriate secretion of antidiuretic hormone (principal); I51.89 Other ill-defined heart diseases; D63.8 Anemia in other chronic diseases classified elsewhere
CPT/HCPCS: 36415; 80048; 83880; 83930; 83935; 84300; 85025

== ENCOUNTER → 2019-06-15 14:06 | Outpatient (CLI) | payer MEDICARE, SELFPAY ==
--- NOTE | 2019-06-15 | DI.CT.S_ITS ---
PROCEDURE: CT LUMBAR SPINE WO CON INDICATIONS: MIDLINE THORACIC PAIN TECHNIQUE: Noncontrast 3 mm thick sections acquired from the T12 level to the sacrum. Sagittal and coronal reformats were constructed. For radiation dose reduction, the following was used: automated exposure control. COMPARISON: [facility], CT, CT LUMBAR FACET INJ SINGLE, 06/13/2015, 17:45. [facility], CT, CT LUMBAR FACET INJ SINGLE, 06/13/2015, 12:53. [facility], CT, CT THORACIC SPINE WO CON, 06/15/2019, 14:31. [facility], CR, SPINE THORACIC 2VW, 01/24/2017, 11:57. [facility], CR, XR CHEST 1 VIEW, 05/26/2019, 9:59. [facility], CT, LUMBAR OR SACRAL SPINE WO CONT, 01/29/2017, 13:14. [facility], CR, L-SPINE 2-3 VIEWS, 10/19/2016, 15:59. [facility], CR, XR THORACIC SPINE 2 VIEWS, 06/03/2019, 15:27. FINDINGS: Image quality: Excellent. Bones: There is moderate to severe scoliosis. Grade 1 retrolisthesis is at L1-L2 and L2-L3. Mild anterior wedge deformity of L1 vertebral body, consistent with mild vertebral body compression fracture. Overall, comparison significant change from 01/29/2017. There is osteopenia. Extensive postsurgical changes are seen with discectomy and posterior decompression at T10-S1. No suspicious lytic or blastic bony lesions. Central spinal caliber is of normal overall caliber. No pars defects. L1-L2: Surgically fused with posterior decompression. Severe loss of disc height and posterior disc osteophyte complex. No central canal stenosis. Severe right and moderate left foraminal stenosis. L2-L3: Surgically fused with a disc prosthesis. Posterior decompression. The central canal patent. Moderate left and mild right foraminal stenosis. L3-L4: Surgically fused with a disc prosthesis. Posterior decompression. No central canal stenosis nor foraminal stenosis. L4-L5: Surgically fused. There is a posterior decompression. No central canal stenosis nor foraminal stenosis. L5-S1: Surgically fused with disc prosthesis and posterior decompression. No central canal stenosis. Mild bilateral foraminal stenosis. Soft tissues: No retroperitoneal masses or hematomas. Visualized aorta is normal in caliber. There are multiple colonic diverticula. [id number] atherosclerosis. IMPRESSION: 1. Multilevel degenerative and post surgical changes in lumbar spine as described. 2. No central canal stenosis. 3. Multilevel foraminal stenosis as described. 4. Diverticulosis without acute diverticulitis. 5. Moderate to severe atherosclerosis. Dictated by: Sylvie Kirby M.D. on 06/15/2019 at 15:22 Approved by: Sylvie Kirby M.D. on 06/16/2019 at 11:03
--- NOTE | 2019-06-15 | DI.CT.S_ITS ---
PROCEDURE: CT THORACIC SPINE WO CON INDICATIONS: MIDLINE THORACIC PAIN TECHNIQUE: Noncontrast 3 mm thick sections acquired through the region of interest in the thoracic spine. Sagittal and coronal reformats were then constructed. For radiation dose reduction, the following was used: automated exposure control. COMPARISON: [facility], CR, XR CHEST 1 VIEW, 05/26/2019, 9:59. [facility], CT, CT ANGIO CHEST PE, 12/28/2017, 2:21. [facility], CR, XR THORACIC SPINE 2 VIEWS, 06/03/2019, 15:27. [facility], CT, THORAX WITHOUT CONTRAST, 02/13/2016, 8:39. [facility], CT, CT ABDOMEN PELVIS WITHOUT CONTRAST, 05/26/2019, 12:51. FINDINGS: Image quality: Excellent. Bones: There is normal overall bony alignment. There is mild chronic vertebral body compression fracture of T10. There is anterior fusion at C7-T1 and posterior fusion from T10-S1. No suspicious sclerotic or lytic bony lesions. There is grade 1 anterolisthesis of C7 on T1 and T1 on T2. Degenerative disc disease is present, severe at T1-T2, T2-T3, T8-T9, and T9-T10. Mild to moderate degenerative disc disease at other levels. Central spinal canal is of normal overall caliber. Soft tissues: No paravertebral masses or hematomas. Visualized posteromedial lungs appear clear. There is a small to moderate left pleural effusion and a small right profusion. The left effusion appears loculated. There is left basilar consolidation or atelectasis. There is moderate cardiomegaly. Cardiac pacemaker is noted. IMPRESSION: 1. Mild chronic compression fracture of T10. 2. 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 3. Postsurgical changes as described. 4. Bilateral pleural effusions, [id number] on the left and small on the right. There is left basilar consolidation or atelectasis. The left effusion appears loculated. Differential diagnosis include simple effusion versus empyema. 5. Cardiomegaly. Dictated by: Sylvie Kirby M.D. on 06/15/2019 at 16:05 Approved by: Sylvie Kirby M.D. on 06/16/2019 at 11:06
== END ==
PROVIDERS: PCP Internal Medicine; Visit Provider Physician Assistant Surgical
DX: M51.36 Other intervertebral disc degeneration, lumbar region (principal); Z98.1 Arthrodesis status; M48.061 Spinal stenosis, lumbar region without neurogenic claudication; M48.07 Spinal stenosis, lumbosacral region; K57.90 Diverticulosis of intestine, part unspecified, without perforation or abscess without bleeding; J90 Pleural effusion, not elsewhere classified; M48.54XA Collapsed vertebra, not elsewhere classified, thoracic region, initial encounter for fracture; I51.7 Cardiomegaly
CPT/HCPCS: 72128; 72131; Q9967

== ENCOUNTER → 2019-06-23 11:38 | Outpatient (CLI) | payer MEDICARE, SELFPAY ==
--- NOTE | 2019-06-23 | DI.RAD.S_ITS ---
PROCEDURE: XR CHEST 2V INDICATIONS: Pneumonia TECHNIQUE: 2 views of the chest were acquired. COMPARISON: [facility], , XR CHEST 1V, 08/07/2018, 6:39. [facility], CR, CHEST 2 VIEW, 08/03/2016, 11:05. FINDINGS: Surgical changes and devices: Stable over time. Lungs and pleura: Lungs are abnormal with a left lower lobe pneumonia pattern versus consolidation from other causes, or atelectasis. No pleural effusions or pneumothorax. Mediastinum: Mediastinal contours are normal. Heart size is normal. Bones and chest wall: No suspicious bony abnormalities. Mild kyphosis centered at the upper aspect of the area of prior spine fusion surgery that extends from the low thoracic spine into the lumbosacral spine is again noted. Soft tissues appear unremarkable. IMPRESSION: Postsurgical changes are chronic, stable over time. Air space consolidation left lung base again seen, quite similar to that previously present in July of 2018 and also earlier in 2015. Chronic atelectasis may explain the finding on each of the 3 studies but it is possible that superimposed pneumonia at the left lung base is present. Dictated by: Lucas Cook M.D. on 06/23/2019 at 12:53 Approved by: Lucas Cook M.D. on 06/23/2019 at 12:55
== END ==
PROVIDERS: PCP Internal Medicine; Visit Provider Internal Medicine
DX: J18.9 Pneumonia, unspecified organism (principal)
CPT/HCPCS: 71046

== ENCOUNTER → 2019-07-06 10:28 | Outpatient (CLI) | payer MEDICARE, SELFPAY ==
[2019-07-06 11:07] LABS: BUN Creatinine Ratio 35.7 (6-22); Blood Urea Nitrogen 25 mg/dL (7-17); Calcium 9.7 mg/dL (8.4-10.2); Carbon Dioxide 39 mmol/L (22-32); Chloride 92 mmol/L (98-107); Estimated Glomerular Filt Rate > 60.0 mL/min (>60); Glucose 78 mg/dL (80-110); HEMOLYSIS < 15 (0-50); Potassium 4.3 mmol/L (3.4-5.1); Sodium 136 mmol/L (137-145)
== END ==
PROVIDERS: PCP Internal Medicine; Visit Provider Specialist
DX: I47.2 Ventricular tachycardia (principal); J90 Pleural effusion, not elsewhere classified; E78.2 Mixed hyperlipidemia
CPT/HCPCS: 36415; 80048; 83735

== ENCOUNTER → 2019-07-22 14:36 | Outpatient (CLI) | payer MEDICARE, SELFPAY ==
--- NOTE | 2019-07-22 | DI.CT.S_ITS ---
PROCEDURE: CT CERVICAL SPINE WO CON INDICATIONS: Cervicalgia TECHNIQUE: Noncontrast 3 mm thick sections acquired from the skull base to the T4 level. Sagittal and coronal reformats were then constructed. For radiation dose reduction, the following was used: automated exposure control, adjustment of mA and/or kV according to patient size. COMPARISON: [facility], CT, CT THORACIC SPINE WO CON, 06/15/2019, 14:31. [facility], CR, XR CHEST 2V, 06/23/2019, 11:49. FINDINGS: Image quality: Excellent. Bones: No fractures or dislocations. Visualized superior ribs are intact. C7-T1 postoperative change is seen anteriorly. No findings of hardware failure or hardware loosening are seen. Advanced degenerative changes are seen, with severe disc space narrowing at C3-C4, C4-C5, and C5-C6. There is a degree of bony fusion seen at these levels. Moderate to severe disc space narrowing is seen at C5-C6, with likely bony fusion. Posteriorly projected endplate osteophytes are seen. There is at least moderate disc space narrowing at C2-C3. Soft tissues: Prevertebral soft tissues are normal in thickness. No paravertebral hematomas. No apical pneumothoraces. There is a small left-sided pleural effusion seen. A pacer device is seen. Post CABG changes are seen. IMPRESSION: Unremarkable C7-T1 postoperative change. Advanced cervical spine degenerative changes are seen. Small left-sided pleural effusion partially seen. Dictated by: Lavelle Orellana M.D. on 07/22/2019 at 14:14 Approved by: Lavelle Orellana M.D. on 07/22/2019 at 14:17
== END ==
PROVIDERS: Family Provider Internal Medicine; PCP Internal Medicine; Visit Provider Physical Medicine & Rehabilitation Pain Medicine
DX: M54.2 Cervicalgia (principal); M47.812 Spondylosis without myelopathy or radiculopathy, cervical region; J90 Pleural effusion, not elsewhere classified; Z98.1 Arthrodesis status
CPT/HCPCS: 72125

== ENCOUNTER → 2019-08-10 13:34 | Outpatient (CLI) | payer MEDICARE, SELFPAY ==
[2019-08-10 15:25] LABS: BUN Creatinine Ratio 24.4 (6-22); Blood Urea Nitrogen 22 mg/dL (7-17); C-Reactive Protein Quant 1.8 mg/dL (<1.0); Calcium 10.1 mg/dL (8.4-10.2); Carbon Dioxide 36 mmol/L (22-32); Chloride 91 mmol/L (98-107); Estimated Glomerular Filt Rate 59.8 mL/min (>60); Glucose 93 mg/dL (80-110); HEMOLYSIS < 15 (0-50); Potassium 4.5 mmol/L (3.4-5.1); Sodium 135 mmol/L (137-145)
[2019-08-10 15:33] LABS: Erythrocyte Sedimentation Rate 28 MM/HR (0-20)
[2019-08-13 14:31] LABS: ANA Screen, IFA NEGATIVE (NEGATIVE)
[2019-08-15 15:00] LABS: Acetylcholine receptor antibod 5
== END ==
PROVIDERS: PCP Internal Medicine; Visit Provider Internal Medicine
DX: H53.2 Diplopia (principal); E87.1 Hypo-osmolality and hyponatremia
CPT/HCPCS: 36415; 80048; 83519; 85651; 86038; 86140

== ENCOUNTER → 2019-12-09 10:13 | Outpatient (CLI) | payer MEDICARE, SELFPAY ==
[2019-12-09 11:20] LABS: Alanine Aminotransferase 20 IU/L (<35); Albumin 4.5 g/dL (3.5-5.0); Albumin Globulin Ratio 1.3 (1.0-2.8); Alkaline Phosphatase 96 U/L (38-126); Aspartate Aminotransferase 41 IU/L (14-36); BUN Creatinine Ratio 21.4 (6-22); Bilirubin Total 0.6 mg/dL (0.2-1.3); Blood Urea Nitrogen 15 mg/dL (7-17); Calcium 10.3 mg/dL (8.4-10.2); Carbon Dioxide 36 mmol/L (22-32); Chloride 89 mmol/L (98-107); Estimated Glomerular Filt Rate > 60.0 mL/min (>60); Globulin 3.4 g/dL (1.7-4.1); Glucose 87 mg/dL (80-110); HEMOLYSIS < 15 (0-50); Magnesium 1.9 mg/dL (1.6-2.3); Sodium 132 mmol/L (137-145); Total Protein 7.9 g/dL (6.3-8.2)
[2019-12-11 09:14] LABS: Lipoprofile NMR SEE SEPERATE REPORT
== END ==
PROVIDERS: PCP Internal Medicine; Visit Provider Specialist
DX: I10 Essential (primary) hypertension (principal); E78.2 Mixed hyperlipidemia; I47.2 Ventricular tachycardia
CPT/HCPCS: 36415; 80053; 83704; 83735

== ENCOUNTER → 2020-05-31 13:37 | Outpatient (CLI) | payer MEDICARE, SELFPAY ==
--- NOTE | 2020-05-31 13:44 | DI.CT.S_ITS ---
PROCEDURE: CT SINUS SCREEN WO CON INDICATIONS: Sinus congestion; Dyspnea TECHNIQUE: Noncontrast 3.0 mm axial images acquired from the frontal sinuses to the mid-sella, with coronal and sagittal reformats. For radiation dose reduction, the following was used: automated exposure control, adjustment of mA and/or kV according to patient size. COMPARISON: [facility], CT, CT CHEST WO CON, 05/31/2020, 13:53. FINDINGS: Image quality: Diagnostic, with note made of motion artifact. Maxillary Sinuses: There is complete opacification seen of the right maxillary sinus. Within this opacification, there is increased density, measuring greater than 80 Hounsfield units. There is demineralization and partial absence of the medial wall of the right maxillary sinus. The majority of the medial wall of the left maxillary sinus has been removed. Ethmoid Air Cells: Portions of the ethmoid air cell septations have been removed Sinuses are clear. Sphenoid Sinuses: No bony remodeling or destruction. Moderate mucosal thickening is seen within the right sphenoid sinus. There is minimal mucosal thickening within the left sphenoid sinus. Frontal Sinuses: No bony remodeling or destruction. Sinuses are clear. Ostiomeatal Complexes: Ostiomeatal complexes are patent. No Teresa cells. Miscellaneous: Visualized intra-orbital contents are normal. Prominent portions of the superior turbinates and the entire middle turbinates have been removed. Minimal S-shaped nasal septal deviation is seen. IMPRESSION: Focal right maxillary sinus disease, with complete opacification. Increased density is seen within the abnormal soft tissue material, which may be related to inspissated secretions or potentially to a fungal infection. Prominent postoperative changes are seen. Dictated by: Lavelle Orellana M.D. on 05/31/2020 at 13:36 Approved by: Lavelle Orellana M.D. on 05/31/2020 at 13:39
--- NOTE | 2020-05-31 13:58 | DI.CT.S_ITS ---
PROCEDURE: CT CHEST WO CON INDICATIONS: DYSPNEA TECHNIQUE: Noncontrast 5 mm thick sections acquired from the pulmonary apices to the posterior costophrenic angles. 1 mm lung window, 5 mm thick coronal and sagittal and 7 mm axial MIP reformats were then acquired. For radiation dose reduction, the following was used: automated exposure control, adjustment of mA and/or kV according to patient size. COMPARISON: [facility], CR, XR CHEST 2 VIEWS, 01/24/2020, 16:25. [facility], CT, CT ANGIO CHEST PE, 12/28/2017, 2:21. FINDINGS: Image quality: Excellent. Lungs and pleura: There is a persistent effusion appearing loculated and chronic in the left lower lobe. Interval development of mild right effusion is present. Minimal areas of superimposed consolidation are present. Mediastinum: Heart size is enlarged. Chronic interstitial changes are present. There are progressive areas of nodularity identified within the right upper lobe near the major fissure as well as scattered areas in the right middle lobe. No pericardial effusion. No mediastinal adenopathy by size criteria. Thoracic aorta and central pulmonary arteries are normal in size. Esophagus is normal in caliber. No hiatal hernia. Bones and chest wall: No suspicious bony lesions. No vertebral body compression fractures. No axillary or supraclavicular adenopathy by size criteria. Thyroid gland is unremarkable . Abdomen: Visualized upper abdominal solid organs and bowel loops appear normal in the absence of contrast. IMPRESSION: 1. Chronic interstitial changes with what appears to be a chronic, loculated left effusion. 2. New mild right effusion. 3. Areas of nodularity identified within the right lung as above, new compared to 2018. These may represent areas of interval scarring and progression of chronic interstitial disease. However, new areas of nodularity cannot be definitively excluded. Recommend appropriate therapy if concern persists for infection or inflammation and short interval imaging follow-up to document resolution. Dictated by: Portia Tyson M.D. on 05/31/2020 at 17:01 Approved by: Portia Tyson M.D. on 05/31/2020 at 17:04
== END ==
PROVIDERS: PCP Internal Medicine; Referring Provider Internal Medicine; Visit Provider Internal Medicine
DX: H65.91 Unspecified nonsuppurative otitis media, right ear (principal); R06.00 Dyspnea, unspecified; R09.81 Nasal congestion; J32.0 Chronic maxillary sinusitis; J90 Pleural effusion, not elsewhere classified; R91.8 Other nonspecific abnormal finding of lung field; I51.7 Cardiomegaly
CPT/HCPCS: 70486; 71250

== ENCOUNTER → 2020-06-16 10:45 | Outpatient (CLI) | payer MEDICARE, SELFPAY ==
[2020-06-16 11:28] LABS: Alanine Aminotransferase 18 IU/L (<35); Albumin 4.3 g/dL (3.5-5.0); Albumin Globulin Ratio 1.3 (1.0-2.8); Alkaline Phosphatase 91 U/L (38-126); Aspartate Aminotransferase 37 IU/L (14-36); BUN Creatinine Ratio 26.3 (6-22); Bilirubin Total 0.7 mg/dL (0.2-1.3); Blood Urea Nitrogen 21 mg/dL (7-17); Calcium 9.8 mg/dL (8.4-10.2); Carbon Dioxide 38 mmol/L (22-32); Chloride 89 mmol/L (98-107); Estimated Glomerular Filt Rate > 60.0 mL/min (>60); Globulin 3.4 g/dL (1.7-4.1); Glucose 94 mg/dL (80-110); HEMOLYSIS < 15 (0-50); Potassium 4.8 mmol/L (3.4-5.1); Sodium 131 mmol/L (137-145); Total Protein 7.7 g/dL (6.3-8.2)
[2020-06-16 12:22] LABS: Thyroid Stimulating Hormone 5.42 uIU/mL (0.47-4.68)
[2020-06-18 08:12] LABS: Cholesterol, Total 157 mg/dL (100-199); HDL-Cholesterol 86 mg/dL (>39); HDL-Particle (Total) 28.5 umol/L (>=30.5); Historical Reading Comment: (.); LDL Particle 548 nmol/L (<1000); LDL Size 21.1 nm (>20.5); LDL-Cholsterol 60 mg/dL (0-99); LP-IR Score <25 (<=45); Small LDL- Particle <90 nmol/L (<=527); Triglycerides 53 mg/dL (0-149)
== END ==
PROVIDERS: PCP Internal Medicine; Referring Provider Specialist; Visit Provider Specialist
DX: E78.2 Mixed hyperlipidemia (principal); I47.2 Ventricular tachycardia; E03.9 Hypothyroidism, unspecified
CPT/HCPCS: 36415; 80053; 80061; 83704; 83735; 84443

== ENCOUNTER → 2020-07-06 10:40 | Outpatient (CLI) | payer MEDICARE, SELFPAY | PROVIDERS: PCP Internal Medicine; Referring Provider Internal Medicine; Visit Provider Internal Medicine | DX: J32.9 Chronic sinusitis, unspecified (principal) | CPT/HCPCS: 87070; 87077; 87186 ==

== ENCOUNTER → 2020-08-24 09:13 | Outpatient (CLI) | payer MEDICARE, SELFPAY ==
[2020-08-24 11:38] LABS: Alanine Aminotransferase 18 IU/L (<35); Albumin 3.9 g/dL (3.5-5.0); Albumin Globulin Ratio 1.2 (1.0-2.8); Alkaline Phosphatase 96 U/L (38-126); Aspartate Aminotransferase 34 IU/L (14-36); Bilirubin Total 0.5 mg/dL (0.2-1.3); Blood Urea Nitrogen 18 mg/dL (7-17); Calcium 9.5 mg/dL (8.4-10.2); Chloride 88 mmol/L (98-107); Estimated Glomerular Filt Rate > 60.0 mL/min (>60); Globulin 3.2 g/dL (1.7-4.1); Glucose 84 mg/dL (80-110); HEMOLYSIS < 15 (0-50); Magnesium 1.9 mg/dL (1.6-2.3); Potassium 4.5 mmol/L (3.4-5.1); Sodium 131 mmol/L (137-145); Total Protein 7.1 g/dL (6.3-8.2)
[2020-08-24 11:45] LABS: Carbon Dioxide 38 mmol/L (22-32)
[2020-08-31 12:01] LABS: Cholesterol, Total 181; HDL-Cholesterol 100; HDL-Particle (Total) 31.1; LDL Particle 522; LDL-Cholsterol 71; LP-IR Score <25; Small LDL- Particle <90; Triglycerides 47
== END ==
PROVIDERS: PCP Internal Medicine; Referring Provider Nurse Practitioner; Visit Provider Nurse Practitioner
DX: I10 Essential (primary) hypertension (principal); I47.2 Ventricular tachycardia; E78.2 Mixed hyperlipidemia
CPT/HCPCS: 36415; 80053; 80061; 83704; 83735

== ENCOUNTER 2020-09-14 14:02 | Emergency (ER) | payer MEDICARE, SELFPAY ==
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
[2020-09-14 14:21] VITALS: PULSE 72; O2SAT 92
--- NOTE | 2020-09-14 14:24 | DI.RAD.S_ITS ---
PROCEDURE: XR CHEST 1V INDICATIONS: Short of breath, weakness TECHNIQUE: One view of the chest was acquired. COMPARISON: [facility], CT, CT CHEST WO CON, 05/31/2020, 13:53. [facility], CR, XR CHEST 2 VIEWS, 01/24/2020, 16:25. [facility], CR, XR CHEST 1 VIEW, 10/01/2019, 6:11. [facility], CR, XR CHEST 2V, 06/23/2019, 11:49. FINDINGS: Surgical changes and devices: Numerous postoperative changes are seen, including lower cervical spine fixation fracture, thoracolumbar fixation hardware, cholecystectomy clips, and post CABG changes. A pacer device is also seen. The leads are seen in stable positions. Lungs and pleura: Small bilateral pleural effusions are seen. Presumed overlying atelectasis is seen. No pneumothorax is seen. Mediastinum: The cardiac contours are mildly to moderately enlarged. The aorta demonstrates calcification and tortuosity. Bones and chest wall: No suspicious bony lesions. Age-appropriate bony degenerative changes are seen. Mild dextroconvex scoliotic curvature is seen. Overlying soft tissues appear unremarkable. IMPRESSION: Cardiomegaly and pleural effusions. Please consider CHF. Postoperative and degenerative changes are seen. Dictated by: Lavelle Orellana M.D. on 09/14/2020 at 13:58 Approved by: Lavelle Orellana M.D. on 09/14/2020 at 14:00
[2020-09-14 14:30] VITALS: PULSE 67; O2SAT 95
[2020-09-14 14:31] VITALS: BP 156/108; PULSE 70; O2SAT 95
--- NOTE | 2020-09-14 14:35 | PC.NURSE ---
Pt w/ known CHF history on home oxygen started on torsemide but stopped because I didn't like the way it made me feel and started on previous lasix again. Since trying torsemide pt states she has been dribbling urine and has been unable to empty bladder. Bladder scan at bedside by provider showed urine in bladder but not overly distended. #16 fr mooney placed w/o difficulty. Clear yellow urine output. Pt states she had had increased fatigue and shortness of breath. Is usually on 2 L [place] oxygen to maintain sats > 95%. Today 88% on 2L. Increased to 3L nc for sat 92%. Denies chest pain. Skin is pink/warm/dry. Pt is a/o x 4. No neurologic deficit.
[2020-09-14 14:39] LABS: Bacteria Urine None Seen; RBC Urine None Seen (0-5/HPF); WBC Urine None Seen (0-5/HPF)
[2020-09-14 14:43] LABS: Add Manual Diff / Slide Review NO; Basophils Absolute Auto 0 /uL (0-100); Basophils Percent Auto 0.5 % (0-2); Eosinophils Absolute Auto 0 /uL (0-450); Eosinophils Percent Auto 0.6 % (2-4); Hematocrit 35.4 % (36-46); Hemoglobin 11.2 g/dL (12.0-16.0); Lymphocytes Absolute Auto 600 /uL (1100-4500); Lymphocytes Percent Auto 7.5 % (25-40); Mean Corpuscular HGB Conc 31.6 % (30-36); Mean Corpuscular Hemoglobin 29.4 PG (26-34); Mean Corpuscular Volume 93.1 fL (80-100); Monocytes Absolute Auto 600 /uL (0-900); Monocytes Percent Auto 7.8 % (3-14); Neutrophils Absolute Auto 6600 /uL (1500-7000); Neutrophils Percent Auto 83.6 % (50-75); Platelet Count 150 X10^3/uL (150-400); Red Blood Cell Count 3.81 X10^6/uL (4.0-5.2); Red Cell Distribution Width 14.6 % (11.6-14.8); White Blood Cell Count 7.9 X10^3/uL (4.5-11.0)
[2020-09-14 14:51] LABS: Appearance Urine UA CLEAR; Bilirubin Urine UA NEGATIVE (NEGATIVE); Color Urine UA YELLOW; Glucose Urine UA NEGATIVE (Negative); Ketones Urine UA NEGATIVE (NEGATIVE); Leukocyte Esterase Urine UA NEGATIVE (NEGATIVE); Nitrite Urine UA NEGATIVE (Negative); Occult Blood Urine UA NEGATIVE (Negative); Protein Urine UA NEGATIVE (Negative); Urobilinogen Urine UA 0.2 E.U./dL (0.2)
[2020-09-14 14:56] LABS: pH Urine UA 7.5 (4.5-8.0)
[2020-09-14 14:57] LABS: Alanine Aminotransferase 20 IU/L (<35); Albumin 4.1 g/dL (3.5-5.0); Albumin Globulin Ratio 1.2 (1.0-2.8); Alkaline Phosphatase 97 U/L (38-126); Aspartate Aminotransferase 40 IU/L (14-36); BUN Creatinine Ratio 22.1 (6-22); Bilirubin Total 0.5 mg/dL (0.2-1.3); Blood Urea Nitrogen 21 mg/dL (7-17); Calcium 9.2 mg/dL (8.4-10.2); Chloride 84 mmol/L (98-107); Globulin 3.4 g/dL (1.7-4.1); Glucose 113 mg/dL (80-110); HEMOLYSIS < 15 (0-50); Magnesium 1.9 mg/dL (1.6-2.3); Potassium 4.6 mmol/L (3.4-5.1); Sodium 128 mmol/L (137-145); Total Protein 7.5 g/dL (6.3-8.2)
[2020-09-14 15:00] VITALS: BP 141/68; PULSE 65; O2SAT 94
[2020-09-14 15:02] LABS: NT-proBNP (BNP-Adult 18+) 3900 pg/mL (<450)
[2020-09-14 15:05] LABS: Carbon Dioxide 39 mmol/L (22-32)
[2020-09-14 15:16] LABS: Culture Indicated Urine Cult Not Indicated
[2020-09-14 15:30] VITALS: BP 152/76; PULSE 67; O2SAT 98
[2020-09-14] MEDS: FUROSEMIDE 40 MG/4 ML VIAL IV (15:41)
[2020-09-14 16:27] VITALS: BP 148/70; PULSE 62; O2SAT 98
== END 2020-09-14 16:44 | disposition home or self-care (01) ==
PROVIDERS: Emergency Provider Emergency Medicine; PCP Internal Medicine
DX: I50.9 Heart failure, unspecified (principal); R06.02 Shortness of breath; R30.0 Dysuria; I10 Essential (primary) hypertension; E78.5 Hyperlipidemia, unspecified; E03.9 Hypothyroidism, unspecified
CPT/HCPCS: 36415; 51701; 71045; 80053; 81001; 83735; 83880; 85025; 93005; 93010; 96374; 99285; J1940

== ENCOUNTER → 2020-09-16 11:18 | Outpatient (CLI) | payer MEDICARE, SELFPAY ==
[2020-09-16 12:18] LABS: Sodium Urine Random 65 mmol/L (30-90)
[2020-09-16 13:14] LABS: BUN Creatinine Ratio 28.8 (6-22); Blood Urea Nitrogen 21 mg/dL (7-17); Calcium 9.6 mg/dL (8.4-10.2); Chloride 84 mmol/L (98-107); Estimated Glomerular Filt Rate > 60.0 mL/min (>60); Glucose 103 mg/dL (80-110); HEMOLYSIS < 15 (0-50); Potassium 4.5 mmol/L (3.4-5.1); Sodium 130 mmol/L (137-145)
[2020-09-16 13:21] LABS: NT-proBNP (BNP-Adult 18+) 3920 pg/mL (<450)
[2020-09-16 13:27] LABS: Carbon Dioxide 40 mmol/L (22-32)
[2020-09-16 13:44] LABS: TSH w/ Reflex to FT4 3.13 uIU/mL (0.47-4.68)
[2020-09-19 15:49] LABS: Osmolality, Serum 278 mOsmol/kg (280-301)
[2020-09-19 16:45] LABS: Osmolality Urine 198 mOsmol/kg (.)
== END ==
PROVIDERS: PCP Internal Medicine; Referring Provider Internal Medicine; Visit Provider Internal Medicine
DX: I27.20 Pulmonary hypertension, unspecified (principal); E87.1 Hypo-osmolality and hyponatremia; I51.89 Other ill-defined heart diseases; E03.9 Hypothyroidism, unspecified
CPT/HCPCS: 36415; 80048; 83880; 83930; 83935; 84300; 84443

== ENCOUNTER 2020-09-28 08:05 | Inpatient (IN) | payer MEDICARE, SELFPAY ==
[2020-09-28] VITALS (29 sets, daily range): BP systolic 131–183; BP diastolic 63–87; PULSE 83–110; RESP 18–49; TEMP 36.2–36.8; O2SAT 79–100; BMI 23.1
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
[2020-09-28 08:36] LABS: Add Manual Diff / Slide Review NO; Basophils Absolute Auto 100 /uL (0-100); Basophils Percent Auto 0.4 % (0-2); Eosinophils Absolute Auto 0 /uL (0-450); Hematocrit 34.7 % (36-46); Hemoglobin 11.3 g/dL (12.0-16.0); Lymphocytes Absolute Auto 300 /uL (1100-4500); Lymphocytes Percent Auto 1.6 % (25-40); Mean Corpuscular HGB Conc 32.5 % (30-36); Mean Corpuscular Hemoglobin 29.9 PG (26-34); Mean Corpuscular Volume 92.2 fL (80-100); Monocytes Absolute Auto 800 /uL (0-900); Monocytes Percent Auto 4.9 % (3-14); Neutrophils Absolute Auto 15400 /uL (1500-7000); Neutrophils Percent Auto 93.1 % (50-75); Platelet Count 241 X10^3/uL (150-400); Red Blood Cell Count 3.77 X10^6/uL (4.0-5.2); Red Cell Distribution Width 14.5 % (11.6-14.8); White Blood Cell Count 16.5 X10^3/uL (4.5-11.0)
[2020-09-28 08:42] LABS: INR 1.2 (0.9-1.3); Prothrombin Time 14.2 SECONDS (10.1-12.7)
[2020-09-28 08:45] LABS: PTT Partial Thromboplastin Tim 31 SECONDS (26.4-36.2)
[2020-09-28 08:46] LABS: Lactate (Lactic Acid) 0.9 mmol/L (0.7-2.1)
[2020-09-28] MEDS: SODIUM CHLORIDE 0.9% 1,000 ML 500 ML IV (08:46)
[2020-09-28 08:47] LABS: Alanine Aminotransferase 32 IU/L (<35); Albumin 3.8 g/dL (3.5-5.0); Alkaline Phosphatase 169 U/L (38-126); Aspartate Aminotransferase 55 IU/L (14-36); BUN Creatinine Ratio 45.7 (6-22); Bilirubin Total 0.7 mg/dL (0.2-1.3); Blood Urea Nitrogen 37 mg/dL (7-17); Calcium 9.6 mg/dL (8.4-10.2); Chloride 86 mmol/L (98-107); Creatine Kinase 109 U/L (30-135); Estimated Glomerular Filt Rate > 60.0 mL/min (>60); Globulin 3.8 g/dL (1.7-4.1); Glucose 90 mg/dL (80-110); HEMOLYSIS 24 (0-50); Sodium 130 mmol/L (137-145); Total Protein 7.6 g/dL (6.3-8.2)
[2020-09-28 08:50] LABS: COVID19 -Nasal RAPID Negative (Negative)
[2020-09-28 08:58] LABS: Carbon Dioxide 35 mmol/L (22-32)
[2020-09-28 08:59] LABS: Troponin I 0.021 ng/mL (0.01-0.034)
[2020-09-28 09:05] LABS: Creatine Kinase MB 4.37 ng/mL (<2.37)
[2020-09-28 09:23] LABS: Thyroid Stimulating Hormone 2.78 uIU/mL (0.47-4.68)
[2020-09-28 09:38] LABS: NT-proBNP (BNP-Adult 18+) 7590 pg/mL (<450)
[2020-09-28] MEDS: FUROSEMIDE 40 MG/4 ML VIAL IV ×2 (10:26→16:52)
[2020-09-28 11:21] LABS: Bacteria Urine Many (>30); Culture Indicated Urine Cult Not Indicated; RBC Urine 5-10/HPF (0-5/HPF); Squamous Epithelial Cell Urine >30 /HPF (0-5/HPF); WBC Urine 5-10/HPF (0-5/HPF)
--- NOTE | 2020-09-28 12:07 | PC.NURSE ---
Ambulated pt on o2 and with walker. Pt was SOB while walking and stated that she felt dizzy. Pt was assisted back to the bed. RN and DR mckeon
[2020-09-28] MEDS: HYDROCODONE/ACET 5/325 TABLET 1 TAB PO ×3 (13:37→21:28)
--- NOTE | 2020-09-28 14:55 | PC.ADMIT ---
[facility] 1087 Admission Note: The patient,Paula Chin,85 y/o, was given written information regarding hospital policies, unit procedures and contact persons. Patient's smoking status: Former smoker. Vital Signs - 8 hr 09/28/20 08:24 09/28/20 09:15 09/28/20 09:30 Temperature 97.3 F L Pulse Rate 83 89 87 Respiratory Rate 18 24 Blood Pressure 151/87 H Pulse Oximetry 96 98 99 09/28/20 10:00 09/28/20 10:30 09/28/20 10:47 Temperature Pulse Rate 89 91 H Respiratory Rate 20 24 Blood Pressure 183/74 H Pulse Oximetry 97 94 09/28/20 11:00 09/28/20 11:30 09/28/20 11:56 Temperature Pulse Rate 88 90 Respiratory Rate 25 H 22 Blood Pressure 143/73 H 138/65 131/80 Pulse Oximetry 98 100 09/28/20 12:00 09/28/20 12:06 09/28/20 12:30 Temperature Pulse Rate 90 89 Respiratory Rate 23 30 H 29 H Blood Pressure 136/64 148/65 H Pulse Oximetry 92 85 L 92 09/28/20 13:00 09/28/20 13:30 09/28/20 13:31 Temperature Pulse Rate 93 H 109 H 106 H Respiratory Rate 24 34 H 47 H Blood Pressure 153/65 H 159/72 H Pulse Oximetry 79 L 97 94 09/28/20 14:39 Temperature 98.3 F Pulse Rate 101 H Respiratory Rate 28 H Blood Pressure 132/63 Pulse Oximetry 93 Rec'd pt from ED to 231 at 1400. Pt transferred from stretcher to bed with slider board and 3PA. Pt is AO x3, mildly forgetful but able to answer assessment questions and complete admission. She is unsure of a couple of doses of medications that she takes and family is going to bring in a list so that staff can update. Oriented pt to room, environment, plan of care, fall risk, use of call light. Instructed pt not to get OOB without assistance from staff. She verbalizes understanding.
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
[2020-09-28] MEDS: MONTELUKAST 10 MG TABLET PO (16:52)
[2020-09-28] MEDS: LORazepam 0.5 MG TABLET PO (18:32)
[2020-09-28] MEDS: CEFTRIAXONE 1 GM/50 ML FROZ.PIGGY IV (18:48)
[2020-09-28] MEDS: AZITHROMYCIN 500 MG in DEXTROSE 5% IN WATER 250 ML IV (20:23)
[2020-09-28] MEDS: ATORVASTATIN 20 MG TABLET PO (21:27)
[2020-09-28] MEDS: METOPROLOL IR 25 MG TABLET 37.5 MG PO (21:27)
[2020-09-28] MEDS: MELATONIN 3 MG TABLET 9 MG PO (21:28)
[2020-09-29] VITALS (14 sets, daily range): BP systolic 105–164; BP diastolic 58–80; PULSE 60–91; RESP 10–33; TEMP 31–36.8; O2SAT 90–99
[2020-09-29 05:11] LABS: Add Manual Diff / Slide Review NO; Basophils Absolute Auto 0 /uL (0-100); Basophils Percent Auto 0.2 % (0-2); Eosinophils Absolute Auto 100 /uL (0-450); Eosinophils Percent Auto 0.4 % (2-4); Hematocrit 35.5 % (36-46); Hemoglobin 11.2 g/dL (12.0-16.0); Lymphocytes Absolute Auto 400 /uL (1100-4500); Lymphocytes Percent Auto 2.8 % (25-40); Mean Corpuscular HGB Conc 31.5 % (30-36); Mean Corpuscular Hemoglobin 29.3 PG (26-34); Mean Corpuscular Volume 93.1 fL (80-100); Monocytes Absolute Auto 1000 /uL (0-900); Monocytes Percent Auto 6.9 % (3-14); Neutrophils Absolute Auto 13600 /uL (1500-7000); Neutrophils Percent Auto 89.7 % (50-75); Platelet Count 243 X10^3/uL (150-400); Red Blood Cell Count 3.82 X10^6/uL (4.0-5.2); Red Cell Distribution Width 14.7 % (11.6-14.8); White Blood Cell Count 15.1 X10^3/uL (4.5-11.0)
[2020-09-29] MEDS: HYDROCODONE/ACET 5/325 TABLET 1 TAB PO ×2 (05:11→20:41)
[2020-09-29 05:20] LABS: Alanine Aminotransferase 31 IU/L (<35); Albumin 3.4 g/dL (3.5-5.0); Alkaline Phosphatase 153 U/L (38-126); Aspartate Aminotransferase 53 IU/L (14-36); BUN Creatinine Ratio 42.3 (6-22); Bilirubin Total 0.5 mg/dL (0.2-1.3); Bilirubin Unconjugated 0.2 mg/dL (0.0-1.1); Blood Urea Nitrogen 33 mg/dL (7-17); Calcium 9.4 mg/dL (8.4-10.2); Chloride 88 mmol/L (98-107); Estimated Glomerular Filt Rate > 60.0 mL/min (>60); Globulin 3.5 g/dL (1.7-4.1); Glucose 94 mg/dL (80-110); HEMOLYSIS < 15 (0-50); Magnesium 2.1 mg/dL (1.6-2.3); Potassium 4.3 mmol/L (3.4-5.1); Sodium 130 mmol/L (137-145); Total Protein 6.9 g/dL (6.3-8.2)
[2020-09-29 05:40] LABS: Carbon Dioxide 42 mmol/L (22-32)
[2020-09-29 05:43] LABS: TSH w/ Reflex to FT4 3.38 uIU/mL (0.47-4.68)
[2020-09-29] MEDS: SODIUM CHLORIDE 0.9% FLUSH 10 ML IV ×2 (05:58→09:23)
[2020-09-29] MEDS: FUROSEMIDE 40 MG/4 ML VIAL IV (05:58)
[2020-09-29 06:27] LABS: HCO3 ABG 40 mmol/L (22-26); PO2 ABG 60 mmHg (80-100); pH ABG 7.39 (7.35-7.45)
[2020-09-29 06:28] LABS: Fractionated Inspired Oxygen 28; Oxygen Saturation ABG 89 % (95-100); PCO2 ABG 66.1 mmHg (35-45); TCO2 ABG 42 mmol/L (21-31)
[2020-09-29] MEDS: ASPIRIN EC 81 MG TABLET PO (09:22)
[2020-09-29] MEDS: LORazepam 0.5 MG TABLET 0.25 MG PO (09:23)
[2020-09-29] MEDS: PANTOPRAZOLE 40 MG TABLET PO (09:23)
[2020-09-29] MEDS: ROSUVASTATIN 10 MG TABLET 5 MG PO (09:23)
[2020-09-29] MEDS: METOPROLOL IR 25 MG TABLET 37.5 MG PO ×2 (09:23→20:42)
[2020-09-29] MEDS: ENOXAPARIN 40 MG/0.4 ML SYRINGE SUBCUT (09:23)
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
--- NOTE | 2020-09-29 14:12 | P.PN_ITS ---
Subjective Subjective Date Patient Seen: 09/29/20 Time Patient Seen: 14:14 Interval history: Paula Chin is a 85-year-old female with past medical history aortic stenosis, coronary artery disease, 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 Yesterday she was net negative about 1.5 L, but denies any significant improvement in her symptoms today. She does appear slightly more comfortable and speaks in more prolonged sentences today. She denies any fever, chills. She feels as if her cough is slightly more productive today. She was able to have a small bowel movement this morning. Her oxygen was actually turned down slightly today given her rising bicarbonate level, ABG was checked which showed a pCO2 of 66 but no acidosis. This appears to likely be her baseline pCO2, however this is not completely known. Have lower down her oxygen will continue to titrate to 88-96%. Was able to find that the patient had an echocardiogram approximately 3 weeks ago that shows an EF of 65-70% without any focal wall motion abnormalities except for interventricular septal flattening secondary to likely volume overload. She was also noted to have a pulmonary hypertension during that study. Her bioprosthetic valve appeared to be functioning normally, however she had worsening mitral regurgitation and tricuspid regurgitation. Exam Vital Signs (past 8 hours): - 09/29/20 07:26 09/29/20 08:00 09/29/20 09:00 Temperature 97.2 F L Pulse Rate 86 91 H Respiratory Rate 20 28 H Blood Pressure 150/72 H Pulse Oximetry 90 L 92 95 09/29/20 12:00 Temperature Pulse Rate Respiratory Rate Blood Pressure Pulse Oximetry 96 Oxygen Delivery Method Nasal Cannula Oxygen Flow Rate 4 Narrative Exam Narrative: GENERAL APPEARANCE: Elderly female, thin with a BMI of 22.7. Lying comfortably in hospital bed. SKIN: Inspection of the skin reveals no rashes, ulcerations or petechiae. HEENT: Normocephalic atraumatic, extraocular muscles are intact, oropharynx is clear and mucous membranes are moist, neck is supple without adenopathy. NECK: Supple and symmetric. There was no thyroid enlargement, and no tenderness, or masses were felt. + JVD slighly improved. CHEST: Normal AP diameter and normal contour without any kyphoscoliosis. LUNGS: Auscultation of the lungs revealed bibasilar crackles, right slightly greater than left with diminished breath sounds at the bases extends to mid lung bilaterally. Mildly poor air movement. CARDIOVASCULAR: There was a regular rate and rhythm without any murmurs, gallops, rubs. Peripheral pulses were 2+ and symmetric. ABDOMEN: Soft and nontender with normal bowel sounds. No ascites was noted. MUSCULOSKELETAL: There was no tenderness or effusions noted. Muscle strength and tone were normal. EXTREMITIES: No cyanosis, clubbing. No edema. NEUROLOGIC: Alert and oriented x 3. Normal affect. Strength is +5/5 in the Upper Extremities and Lower Extremities Bilaterally. Sensation to touch was no rmal. Objective Labs Result Diagrams: 09/29/20 04:30 09/29/20 04:30 Labs: Laboratory Results - last 24 hr 09/28/20 09/29/20 09/29/20 14:10 04:30 04:30 WBC 15.1 H RBC 3.82 L Hgb 11.2 L Hct 35.5 L MCV 93.1 MCH 29.3 MCHC 31.5 RDW 14.7 Plt Count 243 Neut % (Auto) 89.7 H Lymph % (Auto) 2.8 L [place] % (Auto) 6.9 Eos % (Auto) 0.4 L Baso % (Auto) 0.2 Neut # (Auto) 26589 H Lymph # (Auto) 400 L [place] # (Auto) 1000 H Eos # (Auto) 100 Baso # (Auto) 0 ABG pH ABG pCO2 ABG pO2 ABG HCO3 ABG Total CO2 ABG O2 Saturation ABG Base Excess FiO2 Sodium 130 L Potassium 4.3 Chloride 88 L Carbon Dioxide 42 H* BUN 33 H Creatinine 0.78 Estimated GFR > 60.0 BUN/Creatinine Ratio 42.3 H Glucose 94 Calcium 9.4 Magnesium 2.1 Total Bilirubin 0.5 Conjugated Bilirubin 0.0 Unconjugated Bilirubin 0.2 AST 53 H ALT 31 Alkaline Phosphatase 153 H Total Protein 6.9 Albumin 3.4 L Globulin 3.5 Albumin/Globulin Ratio 1.0 TSH Nasal Screen MRSA (PCR) Negative for mrsa 09/29/20 09/29/20 04:30 06:16 WBC RBC Hgb Hct MCV MCH MCHC RDW Plt Count Neut % (Auto) Lymph % (Auto) [place] % (Auto) Eos % (Auto) Baso % (Auto) Neut # (Auto) Lymph # (Auto) [place] # (Auto) Eos # (Auto) Baso # (Auto) ABG pH 7.39 ABG pCO2 66.1 H* ABG pO2 60 L ABG HCO3 40 H ABG Total CO2 42 H ABG O2 Saturation 89 L ABG Base Excess 15.0 H FiO2 28 Sodium Potassium Chloride Carbon Dioxide BUN Creatinine Estimated GFR BUN/Creatinine Ratio Glucose Calcium Magnesium Total Bilirubin Conjugated Bilirubin Unconjugated Bilirubin AST ALT Alkaline Phosphatase Total Protein Albumin Globulin Albumin/Globulin Ratio TSH 3.38 Nasal Screen MRSA (PCR) Assessment & Plan Assessment & Plan narrative: Paula Chin is a 85-year-old female with past medical history aortic stenosis, coronary artery disease, 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 1. Acute on chronic hypoxemic and chronic hypercapnic respiratory failure, present on admission -patient chronically uses 4 L of oxygen at home both at rest and with activity, this achieves a high O2 level for her which actually appears to be causing her to have some hypercarbia on blood gas. She does desaturate with activity as well. Continue Supplemental O2 to achieve 88-96% saturations. Will repeat blood gas tomorrow AM. -likely secondary to volume overload, although the patient does have a chronic cough and leukocytosis and cannot preclude a pneumonia. Will treat for a p ossible pneumonia but low threshold to discontinue antibiotics. -will continue diuresis with 40 mg IV Lasix b.i.d. given net neg. 1.5 L yesterday. Continue to monitor. -strict Is and O2 as well as daily weights 2. Acute on chronic heart failure, diastolic, present on admission -Was able to find that the patient had an echocardiogram approximately 3 weeks ago that shows an EF of 65-70% without any focal wall motion abnormalities except for interventricular septal flattening secondary to likely volume overload. She was also noted to have a pulmonary hypertension during that study. Her bioprosthetic valve appeared to be functioning normally, however she had worsening mitral regurgitation and tricuspid regurgitation. No need for repeat this admission as patient's symptoms were present at the time of previous TTE 3 weeks ago. -proBNP on admission is above 7000, previous lab values were around 3500. Patient also with recent weight gain and dyspnea on exertion. -continue diuresis as noted above 3. Coronary artery disease, history CABG, chronic -continue aspirin, Lipitor 4. Aortic stenosis status post bioprosthetic valve, chronic -TTE as noted boave. 5. History of complete heart block status post pacemaker, chronic -continue telemetry 6. Hypertension, chronic -continue home metoprolol 7. Hyperlipidemia, chronic -continue home statin 8. Hypothyroidism, chronic -TSH is unremarkable on admission, will continue home levothyroxine 9. COPD, chronic, stable -this does not represent a COPD exacerbation. Patient is usually at 4 L at home which may actually need to be lowered based on blood gas with a PCO2 of 66. Code: DNR as discussed with the patient and patient does have a prior POLST form. Surrogate decision maker is her . Dispo: Admitted under inpatient status. Anticipate discharge home with home health when diuresed effectively, which could take another 2-3 days or more. continue PT/OT.
--- NOTE | 2020-09-29 14:36 | CM.IDA ---
Initial DCP Assessment Note Patient is an 85 yo female, resident of [facility]. Patient presents w/acute on chronic resp failure and heart failure, on Home O2. PCP: Beverly Lee Payer: JULIANNA/YASH Reviewed chart. Met w/patient and her DIL at bedside, explained role (need to return to get son and DIL names and contact). Patient very tired this afternoon, keeps her eyes closed for most of our visit, although is certainly A+O and able to review DCP w/this OSTEOPATHIC NEUROLOGIST, permission to speak freely w/DIL at bedside. Patient lives at [facility] w/her spouse who is mostly sedentary, according to patient. patient/spouse have an indp apt and have a dog, patient states spouse is home w/the dog right now. Adult children live locally, and are involved and supportive. Patient hopeful to return home upon DC w/HH, requests solo [facility]. Patient has been cleared by PT for this plan. DIL explains that her , patient's son will be at bedside Saturday and may seek input from the DCP team re: correction care planning and resources as patient/spouse care needs continue to increase. This OSTEOPATHIC NEUROLOGIST is scheduled Saturday and will plan tentatively to meet w/patient and family if patient still here. Meanwhile, asked that INGE Dao assist w/the referral to solo [facility] for RN/PT/OT/THREAD CLIPPER/OSTEOPATHIC NEUROLOGIST. P: DC back to [facility] expected upon medical clearance, w/solo [facility] to follow [facility] [place]
--- NOTE | 2020-09-29 14:37 | CM.DPNOTE ---
Faxed Order [id number], FS, H&P, PT notes to [facility] and scanned fax confirmation for Kellen. FRANKIE
--- NOTE | 2020-09-29 17:41 | OT.IPNOTE ---
Pt not available as eating dinner, to check on pt tomorrow for OT srinivasan.
--- NOTE | 2020-09-29 17:50 | DI.RAD.S_ITS ---
PROCEDURE: XR CHEST 1V INDICATIONS: shortness of breath TECHNIQUE: One view of the chest was acquired. COMPARISON: [facility], CR, XR CHEST 1V, 09/28/2020, 8:28. FINDINGS: Surgical changes and devices: Left chest wall cardiac pacer stable. Spine fixation hardware stable. Postsurgical changes compatible with prior CABG procedure and cholecystectomy stable. Lungs and pleura: Trace bilateral pleural effusions. Increased opacification of the lung bases bilaterally which could represent atelectasis or pneumonia. Mediastinum: Mediastinal contours appear normal. Heart size is normal. Bones and chest wall: No suspicious bony lesions. Overlying soft tissues appear unremarkable. IMPRESSION: 1. Trace bilateral pleural effusions. 2. Bibasilar atelectasis versus pneumonia. Dictated by: Estrella Steven MD, PhD on 09/29/2020 at 18:14 Approved by: Estrella Steven MD, PhD on 09/29/2020 at 18:15
[2020-09-29] MEDS: ALBUTEROL HFA 200 PUFF/18 GM INH (COVID POS/VENT PTS) INH (17:58)
[2020-09-29] MEDS: FUROSEMIDE 100 MG/10 ML VIAL 60 MG IV (18:07)
[2020-09-29 18:12] LABS: PCO2 ABG 72.4 mmHg (35-45); pH ABG 7.37 (7.35-7.45)
[2020-09-29 18:13] LABS: Fractionated Inspired Oxygen 35; HCO3 ABG 42 mmol/L (22-26); Oxygen Saturation ABG 93 % (95-100); PO2 ABG 72 mmHg (80-100); TCO2 ABG 44 mmol/L (21-31)
[2020-09-29] MEDS: MONTELUKAST 10 MG TABLET PO (18:13)
[2020-09-29] MEDS: CEFTRIAXONE 1 GM/50 ML FROZ.PIGGY IV (18:14)
[2020-09-29] MEDS: MELATONIN 3 MG TABLET 9 MG PO (20:42)
[2020-09-29] MEDS: ATORVASTATIN 20 MG TABLET PO (20:42)
[2020-09-29] MEDS: GABAPENTIN 300 MG CAPSULE PO (20:42)
[2020-09-29] MEDS: LORazepam 2 MG/ML INJ 1 MG IV (20:43)
[2020-09-29] MEDS: AZITHROMYCIN 500 MG in DEXTROSE 5% IN WATER 250 ML IV (20:51)
--- NOTE | 2020-09-29 22:19 | PC.NURSE ---
Evening shift note Pt A/Ox3 sitting up in bed VSS, at 1800 pt began becoming increasingly SOB, O2 saturation 90-94% on 3.5L NC, RT and Dr Gomez notified. ABG and CXR ordered. One time dose of 60mg Lasix ordered, CXR shows trace bilateral plueral effusions and bibasilar atelectasis versus pneumonia, ABG shows CO2 of 72.4 orders placed for BiPap settings 16/6 rate of 10 FiO2 of 35%. Pt placed on BiPap at 2100 after receiving her pm meds and 1mg Ativan to help with tolerating BiPap. RT placed BiPap, pt tolerated placement well, as she slept through placement, will continue to monitor closely as pt is sleeping. Bed low and locked, call light within reach will continue to treat and monitor as ordered until report is given to oncoming [facility] shift nurse.
[2020-09-30] VITALS (17 sets, daily range): BP systolic 124–176; BP diastolic 63–88; PULSE 74–87; RESP 10–37; TEMP 31–36.9; O2SAT 91–98
[2020-09-30 05:02] LABS: Add Manual Diff / Slide Review NO; Basophils Absolute Auto 100 /uL (0-100); Basophils Percent Auto 0.5 % (0-2); Eosinophils Absolute Auto 100 /uL (0-450); Eosinophils Percent Auto 0.8 % (2-4); Hematocrit 35.7 % (36-46); Hemoglobin 11.4 g/dL (12.0-16.0); Lymphocytes Absolute Auto 600 /uL (1100-4500); Lymphocytes Percent Auto 4.1 % (25-40); Mean Corpuscular HGB Conc 31.8 % (30-36); Mean Corpuscular Hemoglobin 29.4 PG (26-34); Mean Corpuscular Volume 92.5 fL (80-100); Monocytes Absolute Auto 800 /uL (0-900); Monocytes Percent Auto 5.8 % (3-14); Neutrophils Absolute Auto 12300 /uL (1500-7000); Neutrophils Percent Auto 88.8 % (50-75); Platelet Count 264 X10^3/uL (150-400); Red Blood Cell Count 3.86 X10^6/uL (4.0-5.2); Red Cell Distribution Width 14.8 % (11.6-14.8); White Blood Cell Count 13.8 X10^3/uL (4.5-11.0)
[2020-09-30 05:12] LABS: Alanine Aminotransferase 34 IU/L (<35); Albumin 3.2 g/dL (3.5-5.0); Albumin Globulin Ratio 0.9 (1.0-2.8); Alkaline Phosphatase 157 U/L (38-126); Aspartate Aminotransferase 56 IU/L (14-36); BUN Creatinine Ratio 42.6 (6-22); Bilirubin Total 0.4 mg/dL (0.2-1.3); Bilirubin Unconjugated 0.2 mg/dL (0.0-1.1); Blood Urea Nitrogen 29 mg/dL (7-17); Calcium 9.4 mg/dL (8.4-10.2); Chloride 86 mmol/L (98-107); Estimated Glomerular Filt Rate > 60.0 mL/min (>60); Globulin 3.5 g/dL (1.7-4.1); Glucose 94 mg/dL (80-110); HEMOLYSIS < 15 (0-50); Magnesium 1.8 mg/dL (1.6-2.3); Potassium 3.9 mmol/L (3.4-5.1); Sodium 131 mmol/L (137-145); Total Protein 6.7 g/dL (6.3-8.2)
[2020-09-30 05:26] LABS: Carbon Dioxide 44 mmol/L (22-32)
[2020-09-30] MEDS: METOPROLOL IR 25 MG TABLET 37.5 MG PO ×2 (09:01→20:19)
[2020-09-30] MEDS: FUROSEMIDE 40 MG/4 ML VIAL IV (09:01)
[2020-09-30] MEDS: ASPIRIN EC 81 MG TABLET PO (09:01)
[2020-09-30] MEDS: PANTOPRAZOLE 40 MG TABLET PO (09:04)
[2020-09-30] MEDS: LEVOTHYROXINE 75 MCG TABLET PO (09:12)
[2020-09-30] MEDS: SODIUM CHLORIDE 0.9% FLUSH 10 ML IV ×2 (09:59→20:20)
[2020-09-30] MEDS: ENOXAPARIN 40 MG/0.4 ML SYRINGE SUBCUT (09:59)
[2020-09-30] MEDS: FUROSEMIDE 100 MG/10 ML VIAL 80 MG IV ×2 (10:03→17:06)
--- NOTE | 2020-09-30 10:40 | PT.IPTN ---
Current Diagnoses Hypertensive heart disease with heart failure (09/28/20) Physical Therapy Treatment Note M2 PT-IP Current Condition Start: 09/29/20 12:10 Freq: NEEDED Status: Active Protocol: Document 09/29/20 11:10 AB (Rec: 09/29/20 12:20 AB [email or web address]) Physical Therapy Current Condition Current Condition Evaluation Date 09/29/20 Treatment Diagnosis GLF; respiratory failure; difficulty in walking Onset Date 09/28/20 Precautions Other Precautions O2 sat M3 PT-IP Subjective Start: 09/29/20 12:10 Freq: NEEDED Status: Active Protocol: Document 09/30/20 10:40 AB (Rec: 09/30/20 12:05 AB [email or web address]) Subjective Physical Therapy Visit Type Type Treatment Note Visit Start Time 10:40 Visit Stop Time 11:21 Total Visit Minutes 41 Number of CINDER CRANE OPERATOR Visits 0 Physical Therapy Visit Comments Patient Comments pt is agreeable to do PT M4 PT-IP Mobility and Gait Start: 09/29/20 12:10 Freq: NEEDED Status: Active Protocol: Document 09/30/20 10:40 AB (Rec: 09/30/20 12:05 AB [email or web address]) PT-Bed Mobility Assessment Supine to Sit Supine to Sit Standby Assistance,Head of Bed Elevated PT-Transfer Assessment Sit to and From Stand Sit to and from Stand Contact Guard Assistance,1 Person Assistance,Use of Upper Extremities Equipment Transfer Assistive Device Gait Belt,Front Wheeled Walker Orthotic/Prosthetic Devices or Brace: No Transfers Transfer Destination Toilet Transfer Technique ambulated using FWW Transfer Ability Level of Assist Standby Assistance,Contact Guard Assistance,1 Person Assistance,Use of Upper Extremities Comments Mobility Comments completed supine to sit with HOB elevated SBA. O2 sat with 6L/min at 96%. completed sit to stand CGA and ambulated to the toilet SBA to CGA using fWW. completed toileting needs SBA. pt ambulated to the chair using FWW SBA. agreed to do more ambulation using FWW 35 ft SBA. O2 sat 94%. pt sat on chair but chair needs to be changes. pt completed transfer to another chair using FWW SBA. positioned on chair. call light and table placed wtihin reach. O2 sat at end of tx session 99% Gait Assessment Gait Gait Assistance Required: Standby Assistance Distance (Feet) 35 Able to Maintain Weight Bearing Status Yes During Gait Assistive Devices Assistive Device Gait Belt,Front Wheeled Walker Orthotic/Prosthetic Devices or Brace: No Gait Deviations General Gait Pattern Decreased Stride Length, Decreased Feet Clearance,Step- to Gait Factors Limiting Gait Function Factors Limiting Gait Function Decreased Activity Tolerance, Decreased Strength,Poor Balance,Respiratory Distress Comments Gait Comments pls refer to mobility section for details M5 PT-IP Objective Assessments Start: 09/29/20 12:10 Freq: NEEDED Status: Active Protocol: Document 09/29/20 11:10 AB (Rec: 09/29/20 12:20 AB [id number]) Orientation Orientation/Cognition Level of Alertness Alert Orientation Name,Place,Situation Language Function Ability No Deficits Noted Safety Awareness Understands Safety Issues Gross Range of Motion Lower Extremity ROM Assessment Within Functional Limits Strength Lower Extremity Strength Hip 4/5 Knee 4/5 Sensation Assessment Comments Sensation Comments stated that she has neuropathy on BLE from the knee down to feet Muscle Tone Muscle Tone WNL Yes M6 PT-IP Treatment Start: 09/29/20 12:10 Freq: NEEDED Status: Active Protocol: Document 09/30/20 10:40 AB (Rec: 09/30/20 12:[facility] Treatment Education Education Provided Safety M7 PT-IP Assessment and Plan Start: 09/29/20 12:10 Freq: NEEDED Status: Active Protocol: Document 09/30/20 10:40 AB (Rec: 09/30/20 12:05 AB [email or web address]) PT Summary Assessment and Plan Potential Rehabilitation Potential Good Summary Impairments Pain,ROM,Strength,Balance, Coordination,Sensation,Tone, Cognition,Bed Mobility, Transfers,Gait,Activity Tolerance Progress Towards Goals Slow Progress due to Medical Issues,Slow Progress due to Activity Tolerance Assessment Summary pt continues to have decrease activity tolerance affecting independence. pt plans to go home and spouse to assist her. pt will need HHPT on d/c. Goals Bed Mobility Goal Independent Transfer Goal Independent,Four Wheeled Walker Gait Goal Independent,Four Wheel Walker Gait Distance 150 Days to Meet Goals 5 Frequency of Treatment Frequency Of Treatment Once a Day Treatment Plan Physical Therapy Treatment Plan Bed Mobility Training,Transfer Training,Gait Training, Therapeutic Exercise,Balance Retraining,Discharge Planning, Hot or Cold Pack,Neuromuscular Re-ed,Coordination Retraining Recommendations To Nursing Amount of Assist Needed 1 Person Assist Discharge Recommendations PT Discharge Recommendations Home with Assistance,Home Health Transportation Needs at Discharge Private Vehicle
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
[2020-09-30] MEDS: LORazepam 2 MG/ML INJ 1 MG IV (13:07)
--- NOTE | 2020-09-30 13:12 | DIET.PN ---
Dietary Progress Note Assessment: 85yo F admitted c likely heart failure and acute on chronic respiratory failure. pMHx aortic stenosis, coronary artery disease, status post CABG and bioprosthetic aortic valve in November of 2014 complicated by complete heart block with resulting pacemaker, hypertension, hyperlipidemia, prior pulmonary pleural effusions, chronic hypoxemic respiratory failure likely secondary to COPD, and hypothyroidism. Pt receiving lasix. Pt reports that she weighs herself daily and is always 120#. Prior to her admission she was 123# and recognizes that this was from fluid retention. Pt says she has had trouble eating lately. Says her dentures don?t seem sharp enough to cut the food appropriately and she has to chew for an extended period. Pt reports getting tired while eating. Recc. mechanical soft diet to alleviate some of the work required by the pt. Pt says she has had a decreased appetite for years ever since her heart surgery. Pt also reports getting full very quickly, says she cannot eat a large enough volume of food. Pt and her are very salt conscious at home and do not salt their food. They eat one meal per day that the [facility] provides and supplement breakfast and dinner themselves. Reports they choose low sodium foods whenever possible. Pts daughter in law Nkechi suggested that pt ask the home to prepare the mechanical soft food for her as well. Pt says she does occasionally have ensure or similar ONS at home and is open to trying again. 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 Pt is getting groceries via food delivery from [employer]. HT: 157.48cm WT: 55.6 UBW: 54.5kg (self-reported 120#) BMI: 22.7 (low for age) Labs: NTproBNP: 7590H ABG pCO2: 72.4H CO2: 44H BUN: 29H MNA: 11 @ risk for malnutrition Pillo: 18 Nutrition Diagnosis: Inadequate protein energy intake r/t decreased ability to consume sufficient energy aeb pt reporting getting full quickly and unable to finish usual meals, pt reporting difficulty chewing with current dentures, fatigue while eating, and BMI 22.7. Interventions: 1.Recc. mechanical soft diet in order to alleviate amount of chewing required by pt. 2.ONS Ensure Enlive BID per day providing 40g pro (72% of needs) and 700kcal (50% of needs). 3.Reiterated importance of following a low sodium diet to decrease fluid retention. Pt is very comfortable following this diet and will continue to do so. Diet Order: HH/ Cardiac EER: 1360kcal (25kcal/kg) 55g Pro (1g/kg) Monitoring/Evaluations: % PO intake
--- NOTE | 2020-09-30 15:24 | PC.NURSE ---
Am shift Pt is A/o x3, wearing Bipap until 0830, when Pt removed. Reports tolerating better with Ativan overnight, although was quite sedated overnight per report. Pt unfortunately removed bipap prior to obtaining an ABG this AM. Has been noncompliant with bipap today. Using NC with 3-4L to keep Spo2 88-92% Per family, Nkechi, daughter in law, Pt has been notably more drowsy at home over the last few months. Will fall asleep eating meals. IV is SL, is actively getting fluid off, over 1L this shift. Garibay patent, clear urine. When bipap is in place, Fio2 35% 03/05/10. Crackles to bilat bases. Tele is Vpaced.
[2020-09-30] MEDS: CEFEPIME 2 GM in SODIUM CHLORIDE 0.9% 100 ML 200 ML IV (15:31)
--- NOTE | 2020-09-30 15:54 | PM.PN.1 ---
Subjective Subjective Date Patient Seen: 09/30/20 Time Patient Seen: 15:54 Interval history: Paula Chin is a 85-year-old female with past medical history aortic stenosis, coronary artery disease, 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 The patient has no significant changes today in her symptoms. She continues to feel weak and short of breath. Overnight she was started on BiPAP for hypercarbia, which she was able to tolerate and she states that she did sleep well, patient was dozing off this afternoon and was able to tolerate the BiPAP again for about an hour and a half. Given persistent hypercarbia will pursue a trilogy machine. Her sputum culture also resulted with Pseudomonas, and patient's ceftriaxone was changed to cefepime today for pseudomonal coverage. The patient's leukocytosis continues to improve. She is net negative approximately 3.5 L since admission. Exam Vital Signs (past 8 hours): - 09/30/20 08:00 09/30/20 09:41 09/30/20 12:00 Temperature 97.6 F 98.4 F Pulse Rate 87 78 Respiratory Rate 28 H 28 H Blood Pressure 176/88 H 124/65 Pulse Oximetry 92 92 95 09/30/20 15:28 Temperature 97.1 F L Pulse Rate 80 Respiratory Rate 20 Blood Pressure 135/66 Pulse Oximetry Fraction of Inspired Oxygen 35 Oxygen Delivery Method Nasal Cannula,BiPAP Oxygen Flow Rate 6 Narrative Exam Narrative: GENERAL APPEARANCE: Elderly female, thin with a BMI of 22.7. Lying comfortably in hospital bed. SKIN: Inspection of the skin reveals no rashes, ulcerations or petechiae. HEENT: Normocephalic atraumatic, extraocular muscles are intact, oropharynx is clear and mucous membranes are moist, neck is supple without adenopathy. NECK: Supple and symmetric. There was no thyroid enlargement, and no tenderness, or masses were felt. + JVD slighly improved. CHEST: Normal AP diameter and normal contour without any kyphoscoliosis. LUNGS: Auscultation of the lungs revealed bibasilar crackles, right slightly greater than left with diminished breath sounds at the bases extends to mid lung bilaterally. Mildly poor air movement. CARDIOVASCULAR: There was a regular rate and rhythm without any murmurs, gallops, rubs. Peripheral pulses were 2+ and symmetric. ABDOMEN: Soft and nontender with normal bowel sounds. No ascites was noted. MUSCULOSKELETAL: There was no tenderness or effusions noted. Muscle strength and tone were normal. EXTREMITIES: No cyanosis, clubbing. No edema. NEUROLOGIC: Alert and oriented x 3. Normal affect. Strength is +5/5 in the Upper Extremities and Lower Extremities Bilaterally. Sensation to touch was normal. Objective Labs Result Diagrams: 09/30/20 04:30 09/30/20 04:30 Labs: Laboratory Results - last 24 hr 09/29/20 09/30/20 09/30/20 18:05 04:30 04:30 WBC 13.8 H RBC 3.86 L Hgb 11.4 L Hct 35.7 L MCV 92.5 MCH 29.4 MCHC 31.8 RDW 14.8 Plt Count 264 Neut % (Auto) 88.8 H Lymph % (Auto) 4.1 L [place] % (Auto) 5.8 Eos % (Auto) 0.8 L Baso % (Auto) 0.5 Neut # (Auto) 40263 H Lymph # (Auto) 600 L [place] # (Auto) 800 Eos # (Auto) 100 Baso # (Auto) 100 ABG pH 7.37 ABG pCO2 72.4 H* ABG pO2 72 L ABG HCO3 42 H ABG Total CO2 44 H ABG O2 Saturation 93 L ABG Base Excess 16.0 H FiO2 35 Sodium 131 L Potassium 3.9 Chloride 86 L Carbon Dioxide 44 H* BUN 29 H Creatinine 0.68 Estimated GFR > 60.0 BUN/Creatinine Ratio 42.6 H Glucose 94 Calcium 9.4 Magnesium 1.8 Total Bilirubin 0.4 Conjugated Bilirubin 0.0 Unconjugated Bilirubin 0.2 AST 56 H ALT 34 Alkaline Phosphatase 157 H Total Protein 6.7 Albumin 3.2 L Globulin 3.5 Albumin/Globulin Ratio 0.9 L Assessment & Plan Assessment & Plan narrative: Paula Chin is a 85-year-old female with past medical history aortic stenosis, coronary artery disease, 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 1. Acute on chronic hypoxemic and hypercapnic respiratory failure, present on admission -patient chronically uses 4 L of oxygen at home both at rest and with activity, this achieves a high O2 level for her which actually appears to be causing her to have some hypercarbia on blood gas. She does desaturate with activity as well. Continue Supplemental O2 to achieve 88-96% saturations. Have started on BiPAP therapy at night and when resting, consider trilogy as well as patient has poor tolerance of BiPAP today. -acute component likely secondary to volume overload, although the patient does have a chronic cough and leukocytosis and cannot preclude a pneumonia. Sputum cultures also now growing pseudomonas, ceftriaxone changed to cefepime today, so consider effective coverage as of 09/30, stop date entered for 7 total days of therapy. Continue azithromycin x5 days. -will continue diuresis with 40 mg IV Lasix b.i.d. given adequate diuresis so far. Continue to monitor. Currently net negative 3.5L since admission. Garibay catheter in place for accurate intake and output and patient has difficulty ambulating. -strict Is and O2 as well as daily weights 2. Acute on chronic heart failure, diastolic, present on admission -Was able to find that the patient had an echocardiogram approximately 3 weeks ago that shows an EF of 65-70% without any focal wall motion abnormalities except for interventricular septal flattening secondary to likely volume overload. She was also noted to have a pulmonary hypertension during that study. Her bioprosthetic valve appeared to be functioning normally, however she had worsening mitral regurgitation and tricuspid regurgitation. No need for repeat this admission as patient's symptoms were present at the time of previous TTE 3 weeks ago. -proBNP on admission is above 7000, previous lab values were around 3500. Patient also with recent weight gain and dyspnea on exertion. -continue diuresis as noted above 3. Coronary artery disease, history CABG, chronic -continue aspirin, Lipitor 4. Aortic stenosis status post bioprosthetic valve, chronic -TTE as noted bodione. 5. History of complete heart block status post pacemaker, chronic -continue telemetry 6. Hypertension, chronic -continue home metoprolol 7. Hyperlipidemia, chronic -continue home statin 8. Hypothyroidism, chronic -TSH is unremarkable on admission, will continue home levothyroxine 9. COPD, chronic, stable -this does not represent a COPD exacerbation. Patient is usually at 4 L at home which may actually need to be lowered based on blood gas with a PCO2 of 66. -consider trilogy as noted above for likely chron Code: DNR as discussed with the patient and patient does have a prior POLST form. Surrogate decision maker is her . Dispo: Admitted under inpatient status. Anticipate discharge home with home health when diuresed effectively, which could take another 2-3 days or more. continue PT/OT.
[2020-09-30] MEDS: MONTELUKAST 10 MG TABLET PO (17:06)
[2020-09-30] MEDS: AZITHROMYCIN 500 MG in DEXTROSE 5% IN WATER 250 ML IV (20:14)
[2020-09-30] MEDS: GABAPENTIN 300 MG CAPSULE PO (20:18)
[2020-09-30] MEDS: MELATONIN 3 MG TABLET 9 MG PO (20:18)
[2020-09-30] MEDS: ATORVASTATIN 20 MG TABLET PO (20:19)
[2020-09-30] MEDS: LORazepam 0.5 MG TABLET 0.25 MG PO (22:18)
--- NOTE | 2020-09-30 22:29 | PC.NURSE ---
Shift Note: Pt awake and cooperative with care. OOB x2 to the BR, tolerated well with minimal shortness of breath. Breath sounds diminished in the bases with fine crackles bilaterally. IV saline locked as ordered. Ativan po given at 2215 to help patient tolerated bipap during the night. Has maintained sats >95 on 3.5L nasal cannula this shift. Garibay to bag with clear yellow urine.
[2020-10-01] VITALS (9 sets, daily range): BP systolic 122–164; BP diastolic 71–86; PULSE 78–98; RESP 10–31; TEMP 30.9–36.3; O2SAT 90–96
[2020-10-01] MEDS: LORazepam 2 MG/ML INJ 1 MG IV ×3 (00:48→13:03)
[2020-10-01] MEDS: CEFEPIME 2 GM in SODIUM CHLORIDE 0.9% 100 ML 200 ML IV ×2 (02:37→15:02)
[2020-10-01 05:14] LABS: Add Manual Diff / Slide Review NO; Basophils Absolute Auto 0 /uL (0-100); Basophils Percent Auto 0.4 % (0-2); Eosinophils Absolute Auto 100 /uL (0-450); Eosinophils Percent Auto 1.4 % (2-4); Hematocrit 38.1 % (36-46); Lymphocytes Absolute Auto 500 /uL (1100-4500); Lymphocytes Percent Auto 5.4 % (25-40); Mean Corpuscular HGB Conc 31.5 % (30-36); Mean Corpuscular Hemoglobin 28.8 PG (26-34); Mean Corpuscular Volume 91.4 fL (80-100); Monocytes Absolute Auto 700 /uL (0-900); Neutrophils Absolute Auto 8300 /uL (1500-7000); Neutrophils Percent Auto 85.8 % (50-75); Platelet Count 281 X10^3/uL (150-400); Red Blood Cell Count 4.16 X10^6/uL (4.0-5.2); Red Cell Distribution Width 14.6 % (11.6-14.8); White Blood Cell Count 9.7 X10^3/uL (4.5-11.0)
[2020-10-01 05:26] LABS: Alanine Aminotransferase 49 IU/L (<35); Albumin 3.2 g/dL (3.5-5.0); Albumin Globulin Ratio 0.9 (1.0-2.8); Alkaline Phosphatase 157 U/L (38-126); Aspartate Aminotransferase 76 IU/L (14-36); BUN Creatinine Ratio 36.8 (6-22); Bilirubin Total 0.6 mg/dL (0.2-1.3); Bilirubin Unconjugated 0.3 mg/dL (0.0-1.1); Blood Urea Nitrogen 21 mg/dL (7-17); Calcium 9.2 mg/dL (8.4-10.2); Chloride 87 mmol/L (98-107); Estimated Glomerular Filt Rate > 60.0 mL/min (>60); Globulin 3.5 g/dL (1.7-4.1); Glucose 89 mg/dL (80-110); HEMOLYSIS < 15 (0-50); Magnesium 1.6 mg/dL (1.6-2.3); Potassium 3.6 mmol/L (3.4-5.1); Sodium 133 mmol/L (137-145); Total Protein 6.7 g/dL (6.3-8.2)
[2020-10-01 05:33] LABS: Carbon Dioxide 47 mmol/L (22-32)
--- NOTE | 2020-10-01 06:38 | PC.NURSE ---
Patient on BIPAP overnight; settings / rate 10 Fi02 35% - tolerating only after Ativan given per orders. Sp02 maintained > 90. Breathing unlabored and without complaint. AM serum C02 continues to climb, at 47. Hospitalist Ginny Flood notified. No new orders received.
[2020-10-01] MEDS: FUROSEMIDE 100 MG/10 ML VIAL 80 MG IV (10:42)
[2020-10-01] MEDS: SODIUM CHLORIDE 0.9% FLUSH 10 ML IV ×2 (10:43→19:20)
[2020-10-01] MEDS: PANTOPRAZOLE 40 MG TABLET PO (10:46)
[2020-10-01] MEDS: METOPROLOL IR 25 MG TABLET 37.5 MG PO (10:48)
[2020-10-01] MEDS: ENOXAPARIN 40 MG/0.4 ML SYRINGE SUBCUT (10:48)
[2020-10-01] MEDS: ASPIRIN EC 81 MG TABLET PO (10:48)
--- NOTE | 2020-10-01 11:03 | OT.IP.TRT ---
Current Diagnoses Hypertensive heart disease with heart failure (09/28/20) Occupational Therapy Treatment Note M2 OT-IP Current Condition Start: 09/30/20 14:05 Freq: Status: Active Protocol: Document 09/30/20 14:06 CGR (Rec: 09/30/20 14:18 CGR [email or web address]) Occupational Therapy Current Condition Current Condition Evaluation Date 09/30/20 Treatment Diagnosis GLF and frspiratory failure Diagnosis Onset Date 09/28/20 M3 OT- IP Subjective and Pain Start: 09/30/20 14:05 Freq: Status: Active Protocol: Document 10/01/20 11:17 CGR (Rec: 10/01/20 11:23 CGR [email or web address]) OT- Subjective Occupational Therapy Visit Type Type Progress Note Visit Start Time 10:54 Visit Stop Time 11:03 Total Visit Minutes 9 Notes Nursing requesting for pt to get back to bed. OT Pain Assessment Pain Present Pain Present Unable to Respond FLACC Pain Scale Face No particular expression Legs Normal position; relaxed Activity Quiet, moves easily Cry No cry (awake or asleep) Consolability Content, relaxed FLACC Total 0 M4 OT- IP ADL's Start: 09/30/20 14:05 Freq: Status: Active Protocol: Document 10/01/20 11:17 CGR (Rec: 10/01/20 11:23 CGR [email or web address]) OT [id number] Comments OT Self-Feeding Comments Not meal time OT ADL-Grooming Comments OT Grooming Comments Pt too lethargic to participate OT ADL-Oral Care Comments Oral Care Comments Pt too lethargic to participate OT ADL-Dressing General Eval Upper Body Dressing Ability Total Assistance Comments OT Dressing Comments For removal of robe OT ADL-Toileting General Evaluation Toileting Ability Total Assistance Comments OT Toileting Comments Pt with mooney OT ADL-Bathing Comments OT Bathing Comments Pt too lethargic to participate M5 OT- IP IADL's Start: 09/30/20 14:05 Freq: Status: Active Protocol: Document 09/30/20 14:06 CGR (Rec: 09/30/20 14:18 CGR [email or web address]) OT-Instrumental Activities of Daily Living Deficits IADL Deficits Identified Deficits Home Safety Awareness Awareness of Need for Assistance at Home Decreased Awareness Ability to Problem Solve Emergency Able to Problem Solve Situations Medication Management Medication Management Comments concern for pt to manage medications at this time Money Management Money Management Caregiver Provides Assistance Meal Preparation Meal Preparation Caregiver Provides Assist Manager Car Manager Car Caregiver Provides Assist Driving Driving Comments Pt does not drive M6 OT- IP Functional Cognition Start: 09/30/20 14:05 Freq: Status: Active Protocol: Document 10/01/20 11:17 CGR (Rec: 10/01/20 11:23 CGR [email or web address]) Cognitive Factors Limiting Selfcare Function Cognitive Ability Level of Alertness Lethargic OT- Vision and Hearing OT- Hearing Assessment OT- Hearing Assessment WFL OT- Vision Assessment Vision History Cataracts Visual Acuity WFL Visual Attentiveness WFL Occular Pursuits WFL Visual Convergence WFL Vision Assessment Comments Pt states that she use to wear trifocals but now uses readers as needed since her cataract sx. M7 OT- IP Mobility and Balance Start: 09/30/20 14:05 Freq: Status: Active Protocol: Document 10/01/20 11:17 CGR (Rec: 10/01/20 11:23 CGR [email or web address]) OT- Bed Mobility Assessment Sit to Supine Sit to Supine Assist Moderate Assistance,Bedrails Scooting Scooting to Edge of Bed Moderate Assistance Scooting Up and Down in Bed Total Assistance,2 Person Assistance OT-Transfer Assessment Sit to and From Stand Sit to and from Stand Moderate Assistance Transfers Transfer Ability Moderate Assistance Technique Transfer Destination Bed,Chair Transfer Technique Stand Step Pivot Devices Transfer Assistive Devices Gait Belt,Front Wheeled Walker Comments Mobility Comments Pt is very lethargic throughout session. Awakens to stand and pivot back to bed. Pt is asleep as nursing assists with moving pt up in bed. Pt left with nursing donning bipap. OT- Balance Assessment Sitting Balance and Reactions Static Sitting Balance Ability Poor Dynamic Sitting Balance Ability Poor M8 OT- IP Objective Assessments Start: 09/30/20 14:05 Freq: Status: Active Protocol: Document 09/30/20 14:06 CGR (Rec: 09/30/20 14:18 CGR [email or web address]) OT Gross Range of Motion Upper Extremity Range of Motion Assessment Within Functional Limits OT Strength Upper Extremity Strength Assessment Right Impaired Comments Strength Comments 3-/5 to the R shld, otherwise grossly 4/5 OT- Coordination Assessment Upper Extremity Finger to Nose Test Within Functional Limits Finger Tapping Test Within Functional Limits OT-Muscle Tone Assessment Muscle Tone WNL Yes OT Sensation Assessment Edema Edema Absent M9 OT- IP Assessment and Plan Start: 09/30/20 14:05 Freq: Status: Active Protocol: Document 10/01/20 11:17 CGR (Rec: 10/01/20 11:23 CGR [email or web address]) OT Summary Assessment and Plan Potential Rehabilitation Potential Good Analytic Complexity at Evaluation Moderate Summary OT Impairments Range of Motion,Strength, Balance,Functional Mobility, Grooming,Dressing,Toileting, Bathing,Toilet Transfers, Shower Transfers,Activity Tolerance Progress Towards Goals Progressing Toward Goals Assessment Summary Pt presents as very lethargic today. Pt was able to participate with transfer back to bed with minimal arousal for the activity. Pt left supine in bed at this time with nursing donning bipap mask. Will continue to follow. Goals Grooming Goal Independent Dressing Goal Independent Toileting Goal Independent Bathing Goal Independent Toilet Transfer Goal Independent Shower Transfer Goal Independent Days to Meet Goals 10 Frequency of Treatment Frequency Of Treatment Once a Day Treatment Plan OT Treatment Plan ADL Training,Functional Mobility,Patient/Family Education,Discharge Planning Other Treatment Recommendations and Next shower Treatment Focus Discharge Recommendations OT Discharge Recommendations Home with 24/ Assist,SNF Rehab Home Equipment Needs tbd Transportation Needs at Discharge Private Vehicle
--- NOTE | 2020-10-01 11:12 | PC.NURSE ---
Addendum entered by Dayana Jones R.N. 10/02/20 08:42: Late entry: Comfort care measures initiated, family updated and agreeable in all POC. Original Note: Am shift Pt requesting to be off bipap and work on breakfast, sitting in chair, 3L NC, dim lungs with crackles to bases bilaterally. Weak cough effort. Pt notable drowsy, falling asleep mid meal. Pt agitated when meal removed, education provided about safety with increased aspiration risk. Pt continues to be agitated, I wanted to finish my meal Assisted Pt back to bed, required 2PA, with FWW and gait belt, substantially more assist than this AM. Put bipap back on, Pt continues with some agitation, weak attempts at removing mask. Son at bedside and updated about POC, and open discussion about palliative care vs hospice options. Medicated With Ativan, per request. Organizing conference call with Spouse and daughter in law, Kellen RUBIO, coordinating.
--- NOTE | 2020-10-01 11:47 | PT-IP ANOTE ---
Per OT, pt is too lethargic to work with PT at this time. Pt on bipap
--- NOTE | 2020-10-01 12:32 | PT-IP ANOTE ---
Per RN, pt not appropriate to be seen by PT this PM d/t pt being to lethargic.
--- NOTE | 2020-10-01 14:26 | P.PN_ITS ---
Subjective Subjective Interval history: The patient is an 85-year-old female admitted to the hospital for progressive acute hypoxic respiratory failure. Patient has chronic respiratory failure. It she has known COPD, presented with acute decompensated congestive heart failure with preserved LV function. The patient echo does reveal a leaky mitral valve. The patient remains short of breath and hypercapnic. She is needed intermittent BiPAP at night. She remains short of breath. Her and son were here today. After further discussion they have elected to pursue comfort measures at this time. All medications will be discontinued. The patient will be placed on a comfort care pathway. Exam Vital Signs (past 8 hours): - 10/01/20 07:00 10/01/20 07:05 10/01/20 07:28 Temperature 97.4 F L Pulse Rate 81 87 81 Respiratory Rate 26 H 30 H 26 H Blood Pressure 164/77 H 164/77 H Pulse Oximetry 93 92 93 10/01/20 08:00 10/01/20 11:00 Temperature 96.6 F L Pulse Rate 85 98 H Respiratory Rate 24 22 Blood Pressure 145/86 H Pulse Oximetry 96 93 Fraction of Inspired Oxygen 32 Oxygen Delivery Method Nasal Cannula,BiPAP Oxygen Flow Rate 35 Narrative Exam Narrative: Pleasant female resting comfortably Lungs: Decreased breath sounds bilaterally Cardiac exam: Regular rate rhythm normal S1-S2 with a 3/6 systolic ejection Abdomen: Soft and nontender Extremities: No edema Objective Labs Result Diagrams: 10/01/20 04:40 10/01/20 04:40 Labs: Laboratory Results - last 24 hr 10/01/20 10/01/20 04:40 04:40 WBC 9.7 RBC 4.16 Hgb 12.0 Hct 38.1 MCV 91.4 MCH 28.8 MCHC 31.5 RDW 14.6 Plt Count 281 Neut % (Auto) 85.8 H Lymph % (Auto) 5.4 L Frederick % (Auto) 7.0 Eos % (Auto) 1.4 L Baso % (Auto) 0.4 Neut # (Auto) 8300 H Lymph # (Auto) 500 L Frederick # (Auto) 700 Eos # (Auto) 100 Baso # (Auto) 0 Sodium 133 L Potassium 3.6 Chloride 87 L Carbon Dioxide 47 H* BUN 21 H Creatinine 0.57 Estimated GFR > 60.0 BUN/Creatinine Ratio 36.8 H Glucose 89 Calcium 9.2 Magnesium 1.6 Total Bilirubin 0.6 Conjugated Bilirubin 0.0 Unconjugated Bilirubin 0.3 AST 76 H ALT 49 H Alkaline Phosphatase 157 H Total Protein 6.7 Albumin 3.2 L Globulin 3.5 Albumin/Globulin Ratio 0.9 L Assessment & Plan Assessment & Plan narrative: Assessment & Plan narrative: Paula Chin is a 85-year-old female with past medical history aortic stenosis, coronary artery disease, 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 1. Acute on chronic hypoxemic and hypercapnic respiratory failure, present on admission -after discussion with the family he plans are underway to move towards comfort -all medications will be discontinued -the patient will continue on oxygen for comfort -will discontinue BiPAP, and use morphine as needed for shortness of breath -hospice consultation underway -will discontinue diuretics as 2. Acute on chronic heart failure, diastolic, present on admission -Was able to find that the patient had an echocardiogram approximately 3 weeks ago that shows an EF of 65-70% without any focal wall motion abnormalities except for interventricular septal flattening secondary to likely volume overlo ad. She was also noted to have a pulmonary hypertension during that study. Her bioprosthetic valve appeared to be functioning normally, however she had worsening mitral regurgitation and tricuspid regurgitation. No need for repeat this admission as patient's symptoms were present at the time of previous TTE 3 weeks ago. -proBNP on admission is above 7000, previous lab values were around 3500. P atient also with recent weight gain and dyspnea on exertion. -continue comfort care, discontinue diuretics, morphine for shortness of breath 3. Coronary artery disease, history CABG, chronic - 4. Aortic stenosis status post bioprosthetic valve, chronic -TTE as noted bodione. 5. History of complete heart block status post pacemaker, chronic -on comfort measures will discontinue telemetry 6. Hypertension, chronic -discontinue blood pressure medic 7. Hyperlipidemia, chronic -discontinue statin 8. Hypothyroidism, chronic -TSH is unremarkable on admission, will discontinue all chronic medication Patient has switched to comfort measures will discontinue all active tree and implement treatment design towards, oxygen as needed will discontinue BiPAP
[2020-10-01] MEDS: MORPHINE 2 MG/ML INJ IV ×3 (14:57→19:20)
--- NOTE | 2020-10-01 15:19 | CM.DPNOTE ---
DCP Cont Goals of care: Long conversation w/patient's spouse Junior, son Tad and dtr Tana(on speaker phone), goals of care/Palliative Care conversation facilitated by Lilo Chavez, RN Coordinator, Palliative Care trained RN. Patient's family request comfort measures at this time, effective immediately and request this [employer]ADE [employer]OTH FINISHER begin the planning efforts to get patient home w/son Tad and JOE Arboleda P#[phone] [address] [facility] [place], [address] Tian who spoke w/spouse Junior to update medical POC. Placed call to [facility], faxed referral packet. [facility] is currently booked for approx a week, staff will not be available for the info visit until Saturday10.03.20. Ijeoma at [facility] explains things can change quickly, this is the schedule/calendar as of today 10.01.20. Still need to update family re: [facility] limited availability. Family will likely take patient home, if DME can be delivered, and await f/u from [facility] staff. Robby and JOE have taken care of multiple family members w/Hospice involvement so admit to this SHADE [employer]OTH FINISHER they are not intimidated by end of life care and medication management. Following closely. Awaiting further f/u from scheduling team at [facility] FISH [place]
--- NOTE | 2020-10-01 19:08 | PC.NURSE ---
Shift report received from offgoing RN, Manuel. Pt status changed to comfort care, orders noted to dc all previous meds and labs. Morphine given for restlessness and shortness of breath. Turned q 1hr, emotional support provided to family.
[2020-10-02] MEDS: SODIUM CHLORIDE 0.9% FLUSH 10 ML IV ×3 (02:58→22:20)
[2020-10-02] MEDS: MORPHINE 2 MG/ML INJ IV ×6 (02:58→22:20)
[2020-10-02 04:19] VITALS: BP 121/64; PULSE 90; RESP 20; TEMP 36.8; O2SAT 96
--- NOTE | 2020-10-02 08:43 | PC.NURSE ---
Am shift Pt awake this AM, alert, oriented x 2, forgetful. Denies pain, reports morphine rec'd was quite helpful, I wasnt fighting to breathe. Discussed planning for d/c with Hospice services. Pt verbalizes understanding, It's my time, it's just hard. I appreciate the bipap being off, thank you Continue to focus care on comfort. Family has called and been updated
--- NOTE | 2020-10-02 15:40 | PM.PN.1 ---
Subjective Subjective Date Patient Seen: 10/02/20 Interval history: The patient is an 85-year-old female admitted to the hospital with acute on chronic respiratory failure. She was found to have acute right heart failure. The patient has undergone diuresis for this. She with her family have decided to move toward comfort measures with home hospice. She remains short of breath with minimal activity. Plans are underway for her to discharge home with hospice. Exam Vital Signs (past 8 hours): Fraction of Inspired Oxygen 32 Oxygen Delivery Method Nasal Cannula Oxygen Flow Rate 3 Narrative Exam Narrative: Cachectic ill-appearing female lying in bed Lung decreased breath sounds bilaterally Cardiac exam: Regular rate and rhythm normal S1-S2 Abdomen: Soft nontender nondistended Extremities: No edema Objective Labs Result Diagrams: 10/01/20 04:40 10/01/20 04:40 Assessment & Plan Assessment & Plan narrative: Assessment & Plan narrative: Assessment & Plan narrative: Paula Chin is a 85-year-old female with past medical history aortic stenosis, coronary artery disease, 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 1. Acute on chronic hypoxemic and hypercapnic respiratory failure, present on admission -after discussion with the family he plans are underway to move towards comfort -all medications will be discontinued -the patient will continue on oxygen for comfort -will discontinue BiPAP, and use morphine as needed for shortness of breath -hospice consultation underway -will discontinue diuretics as -started sublingual morphine for relief. Patient received 2 mg of IV morphine which improved breathing considerably 2. Acute on chronic heart failure, diastolic, present on admission -Was able to find that the patient had an echocardiogram approximately 3 weeks ago that shows an EF of 65-70% without any focal wall motion abnormalities except for interventricular septal flattening secondary to likely volume overload. She was also noted to have a pulmonary hypertension during that study. Her bioprosthetic valve appeared to be functioning normally, however she had worsening mitral regurgitation and tricuspid regurgitation. No need for repeat this admission as patient's symptoms were present at the time of previous TTE 3 weeks ago. -proBNP on admission is above 7000, previous lab values were around 3500. Patient also with recent weight gain and dyspnea on exertion. -continue comfort care, discontinue diuretics, morphine for shortness of breath 3. Coronary artery disease, history CABG, chronic - 4. Aortic stenosis status post bioprosthetic valve, chronic -TTE as noted boave. 5. History of complete heart block status post pacemaker, chronic -on comfort measures will discontinue telemetry 6. Hypertension, chronic -discontinue blood pressure medic 7. Hyperlipidemia, chronic -discontinue statin 8. Hypothyroidism, chronic -TSH is unremarkable on admission, will discontinue all chronic medication Patient has switched to comfort measures will discontinue all active tree and implement treatment design towards, oxygen as needed will discontinue BiPAP
--- NOTE | 2020-10-02 15:48 | CM.DANOTE ---
DCP/Assessment: Reviewed chart. Patient is a 85yr old female admitted to [facility] after GLF on 09-28-20. PCP is Beverly Lee. Primary payor is 1)Medicare 2)[employer]. Reviewed previous [facility] notes that indicate patient is now on comfort care. Spoke with provider/Dr. Tian this AM and she confirms. Met with patient and family at bedside. Family requesting to take patient home after DME arrives. They would like patient on hospice services DANIELLE. Placed call to Ijeoma at intake for hospice. She reports no openings at this time for hospice nurse, but that she would order DME in the AM to have delivered tomorrow afternoon. Patient will need prescriptions for hospice medications as well. Family aware that hospice will not immediately be able to send nurse and they are agreeable to administer medications. Family reports that they have done this for other family members. Patient going to son's residence at time of d/c: [address] [place]. [address] phone# [phone]. P: Hopeful patient will be able to d/c home with family tomorrow with hospice. DME will need to be delivered prior to d/c. Hospice has all needed information for son. [facility] Discharge Planning/Care Management CM Discharge Assessment Start: 10/02/20 15:31 Freq: Status: Active Protocol: Document 10/02/20 15:32 KJS (Rec: 10/02/20 15:48 KJS [id number]) Discharge Planning Assessment Assigned Glass Lathe Operator [facility] Contact Information Alma (daughter) ph# [phone] Advance Directives? Yes Advance Directives on File Yes History Provided By Patient,Medical Record Comment Going to son's house upon d/c from [facility] Household Members family Type of transporation used prior to Relies on Others admit Independent with ADL's No Caregiver for Another No Community Services used prior to Oxygen Therapy admission: Barriers to Discharge No Discharge Plan Hospice Community Services Hospice Transportation Arrangement TBD on day of d/c. Patient most likely will need non- urgent BLS transport. Additional Comment Hospice [facility] Updated in Patient Room with Yes name and ext. # of Glass Lathe Operator Review Status In Process Next Review Type Continued Stay Review
[2020-10-02] MEDS: MORPHINE 10 MG/0.5 ML ORAL SYRINGE 5 MG PO (16:31)
[2020-10-02] MEDS: LORazepam 2 MG/ML INJ 1 MG IV (18:12)
[2020-10-03] MEDS: SODIUM CHLORIDE 0.9% FLUSH 10 ML IV ×2 (00:10→07:51)
[2020-10-03] MEDS: MORPHINE 2 MG/ML INJ IV ×2 (00:10→09:42)
[2020-10-03 07:45] VITALS: BP 128/67; PULSE 101; RESP 16; TEMP 36.5; O2SAT 94
[2020-10-03] MEDS: LORazepam 2 MG/ML INJ 1 MG IV (07:50)
[2020-10-03 08:56] VITALS: BP 128/67
--- NOTE | 2020-10-03 09:09 | PM.DS.1 ---
History of Present Illness History of Present Illness Date Patient Seen: 10/03/20 Time Patient Seen: 09:09 Chief complaint: GLF Narrative: Paula Chin is a 85-year-old female with past medical history aortic stenosis, coronary artery disease, status post CABG and bioprosthetic aortic valve in November of 2014 complicated by complete heart block with resulting pacemaker, hypertension, hyperlipidemia, prior pulmonary pleural effusions, chronic hypoxemic respiratory failure likely secondary to COPD, and hypothyroidism who presented with worsening dyspnea on exertion and weakness over the past week. Patient states that she has been having increasing weakness as well as worsening dyspnea on exertion actually over the past couple of months, but this has really worsened over the past week or so. She attempted to increase her Lasix dose from 40-80 mg after being seen in the ER in late August, however this did not seemingly help with her symptoms. She has a continued chronic, nonproductive cough over the past few months, which she states is result of the cold weather. She has gained a few lb recently and has also noted some early satiety. She has not really noticed any orthopnea. She actually presented today after a ground level fall due to her continued weakness. She did not hit her head, and she does not take any blood thinners. In the emergency room, patient was mildly tachypneic. She is usually on 4 L of oxygen at home but was desaturating in to the mid 80s on 4.5 L in the emergency room with ambulation. Laboratory evaluation revealed a leukocytosis 16.5, mild anemia with a hemoglobin of 11.3, normal platelet count. Coagulation studies were unremarkable. Chemistries revealed a mild hyponatremia with a sodium of 130, chloride of 86. Creatinine was 0.81. Lactate was unremarkable at 0.9. AST is mildly elevated at 55. Troponin was within normal limits at 0.21. ProBNP was elevated at 7590. TSH was unremarkable at 2.78. UA was contaminated but patient denied any dysuria or urinary symptoms. COVID-19 testing was negative. Chest x-ray revealed bilateral patchy infiltrates consistent with pulmonary edema and volume overload and she was given a dose of Lasix in the emergency room. Patient was admitted to Medicine for diuresis likely secondary to decompensated heart failure. Discharge Providers Provider Date of admission: 09/28/20 12:56 Discharge Date: 10/03/20 Primary care physician: Beverly Lee MD Consults: 09/28/20 12:31 Consult to [employer] - [employer] Stat Comment: 09/28/20 14:29 Consult to Dietitian, Adult Routine Comment: Reason For Exam: at risk 09/29/20 14:33 Consult to Home Health Routine Comment: Reason For Exam: Home Health Upon DC 10/01/20 14:25 Consult to Discharge Planning Routine Comment: Consult to Hospice Referral Urgent Comment: Discharge provider: Mkie Gomez DO Summary Hospital Course Discharge Diagnosis: Please see hospital course by problem list noted below Hospital Course: Paula Chin is a 85-year-old female with past medical history aortic stenosis, coronary artery disease, status post CABG and bioprosthetic aortic valve in November of 2014 complicated by complete heart block with resulting pacemaker, hypertension, hyperlipidemia, prior pulmonary pleural effusions, chronic hypoxemic respiratory failure likely secondary to COPD, and hypothyroidism who presented with worsening dyspnea on exertion and weakness over the past week, she Was admitted with decompensated heart failure and acute on chronic respiratory failure likely secondary to a combination of her heart failure as well as pseudomonal pneumonia. Ultimately, after minimal improvement with medical therapy, family elected for discharge home on hospice and comfort care. The patient's chronic medications were held and she was discharged with pain control, dyspnea control with Ativan and home oxygen. 1. Acute on chronic hypoxemic and hypercapnic respiratory failure, present on admission -after discussion with the family changed to comfort measures. Patient had been treated for initially pneumonia, cultures grew Pseudomonas, and she was briefly changed to cefepime. She was also treated for acute on chronic heart failure as noted below, but further diuresis was held. -all medications were discontinued -the patient will continue on oxygen for comfort, as well as morphine and Ativan as needed. -Patient developed hypercarbia, especially when asleep. Had trialed BiPAP therapy, but she was unable to tolerate this very well. Initially the plan was to evaluate for home trilogy, however given goals of care discussion election was made for discharge on hospice with goal of primary comfort measures. 2. Acute on chronic heart failure, diastolic, present on admission -Was able to find that the patient had an echocardiogram approximately 3 weeks ago that shows an EF of 65-70% without any focal wall motion abnormalities except for interventricular septal flattening secondary to likely volume overload. She was also noted to have a pulmonary hypertension during that study. Her bioprosthetic valve appeared to be functioning normally, however she had worsening mitral regurgitation and tricuspid regurgitation. No need for repeat this admission as patient's symptoms were present at the time of previous TTE 3 weeks ago. -proBNP on admission is above 7000, previous lab values were around 3500. Patient also with recent weight gain and dyspnea on exertion. -Initial management was as noted above, ultimately discharged on comfort measures. 3. Pseudomonal pneumonia, acute, present on admission -patient was initially started on antibiotic therapy given the appearance of her chest x-ray. Cultures ultimately grew Pseudomonas. She was initially on ceftriaxone and azithromycin, this was changed to cefepime once cultures resulted. However, shortly after this transition the patient was moved to comfort care and all medications were stopped after discussion with family. 4. Coronary artery disease, history CABG, chronic -patient was continued on her home medications until discharge 5. Aortic stenosis status post bioprosthetic valve, chronic -TTE as noted above. 6. History of complete heart block status post pacemaker, chronic -No events were noted on telemetry except for that the patient was paced, discontinued telemetry once she was made comfort. 7. Hypertension, chronic -discontinued her home medications upon discharge as noted above given goals of care 8. Hyperlipidemia, chronic -discontinued statin given goals of care 9. Hypothyroidism, chronic -TSH is unremarkable on admission, Her medications were discontinued after discussion with family. Dispo: discharge home with hospice. Exam Vital Signs (past 8 hours): - 10/03/20 07:45 10/03/20 08:56 Temperature 97.7 F Pulse Rate 101 H Respiratory Rate 16 Blood Pressure 128/67 128/67 Pulse Oximetry 94 Fraction of Inspired Oxygen 32 Oxygen Delivery Method High Flow Nasal Cannula Oxygen Flow Rate 3 Narrative Exam Narrative: GENERAL APPEARANCE: Elderly female, thin with a BMI of 23. Lying comfortably in hospital bed. SKIN: Inspection of the skin reveals no rashes, ulcerations or petechiae. HEENT: Normocephalic atraumatic, extraocular muscles are intact, oropharynx is clear and mucous membranes are moist, neck is supple without adenopathy. NECK: Supple and symmetric. There was no thyroid enlargement, and no tenderness, or masses were felt. CHEST: Normal AP diameter and normal contour without any kyphoscoliosis. LUNGS: Auscultation of the lungs revealed bibasilar crackles, right slightly greater than left with diminished breath sounds at the bases extends to mid lung bilaterally. Mildly poor air movement. CARDIOVASCULAR: There was a regular rate and rhythm without any murmurs, gallops, rubs. Peripheral pulses were 2+ and symmetric. ABDOMEN: Soft and nontender with normal bowel sounds. No ascites was noted. MUSCULOSKELETAL: There was no tenderness or effusions noted. Muscle strength and tone were normal. EXTREMITIES: No cyanosis, clubbing. No edema. NEUROLOGIC: Alert and oriented x 3. Normal affect. Strength is +5/5 in the Upper Extremities and Lower Extremities Bilaterally. Sensation to touch was normal. Objective Labs Result Diagrams: 10/01/20 04:40 10/01/20 04:40 Discharge Plan Discharge Plan Patient Disposition: Hospice - Home Provider Discharge Comment: You were admitted to the hospital with shortness of breath. Discharging home with hospice, comfort medications were prescribed. Discharge orders & Medications Prescriptions: New morphine 15 mg tablet 15 mg PO Q4HR 7 Days Qty: 42 RF: 0 lorazepam [Ativan] 0.5 mg tablet 0.5 mg PO Q4HR 7 Days Qty: 40 RF: 0 Continued melatonin 10 mg Tablet 10 mg PO BEDTIME PRN (Reason: Sleep) RF: 0 Biotene Dry Mouth Oral Rinse Mouthwash 1 dose PO PRN PRN (Reason: Dry Mouth) RF: 0 acetaminophen [Tylenol Extra Strength] 500 mg Tablet 1 tab PO BID RF: 0 Discontinued estradiol 1 MG tablet 1 mg PO DAILY Qty: 0 RF: 0 krill oil 500 mg Capsule 500 mg PO DAILY Qty: 0 RF: 0 hydrocodone-acetaminophen 5-325 mg tablet 1 tab PO TID RF: 0 rosuvastatin 5 mg tablet 5 mg PO DAILY RF: 0 cholecalciferol (vitamin D3) [Vitamin D3] 1,000 unit Capsule 1,000 unit PO DAILY RF: 0 magnesium glycinate 100 mg Tablet 200 mg PO BID RF: 0 cyanocobalamin (vitamin B-12) [Vitamin B-12] 5,000 mcg Tablet, Sublingual 5,000 mcg Sublingual DAILY RF: 0 Hair,Skin and Nails 1 cap PO DAILY RF: 0 Probiotic 1 cap PO DAILY RF: 0 Turmeric 500mg/Stefania 50mg capsule 1 cap PO QAM RF: 0 aspirin 81 MG tablet,delayed release (DR/EC) 81 mg PO DAILY RF: 0 atorvastatin [Lipitor] 20 mg Tablet 20 mg PO BEDTIME RF: 0 furosemide [Lasix] 20 mg Tablet 80 mg PO QAM RF: 0 montelukast [Singulair] 10 mg Tablet 10 mg PO QPM RF: 0 lorazepam 0.5 mg tablet 0.25 mg PO BID PRN (Reason: Anxiety) RF: 0 pantoprazole 40 mg tablet,delayed release (DR/EC) 40 mg PO DAILY RF: 0 albuterol sulfate [Ventolin HFA] 90 mcg/actuation HFA aerosol inhaler 2 puff Inhalation Q4H PRN (Reason: Shortness Of Breath) RF: 0 metoprolol tartrate 25 mg tablet 37.5 mg PO BID RF: 0 levothyroxine 75 mcg tablet 1 tab PO 6XW RF: 0 ascorbic acid (vitamin C) 250 mg Tablet 250 mg PO DAILY RF: 0 loratadine [Claritin] 5 mg/5 mL Solution 10 mg PO DAILY RF: 0 Follow up/Referrals: Beverly Lee MD [Primary Care Provider] - Discharge Data Primary Care Provider: Beverly Lee
--- NOTE | 2020-10-03 13:23 | PC.NURSE ---
pt prepared for discharge to home of her son and daughter in law's this date- she will be leaving with po rx for morphine and lorazepam - hospice to open case soon- and have delivered equipment to the house- reviewed plan of care with mkie ( daughter in law) and readying pt
--- NOTE | 2020-10-03 14:51 | CM.DANOTE ---
DCP/Continued: Reviewed chart. Spoke with Dr. Gomez re: d/c planning. Family requesting to take patient home today. [facility] They are unsure when they can open? Family comfortable with providing patient medications and care until hospice can open. Provider in agreement. Prescriptions obtained and provided to family for filling. Daughter reports that family can provide transport home. Son planning on obtaining tank for travel. All DME has been delivered this AM through Hospice to son's residence. No additional needs identified. P: Home with hospice today via private auto. D/C summary faxed to [facility]. FISH [facility]
== END 2020-10-03 14:39 | disposition hospice, home (50) | DRG 291 ==
LOC: ED 12:53 → AC 13:59 → ICU 14:23 → AC 09-29 10:36 → ICU 09-29 10:36
PROVIDERS: Nurse Practitioner Family; Admitting Provider Internal Medicine; Emergency Provider Emergency Medicine; PCP Internal Medicine; Visit Provider Internal Medicine
DX: I11.0 Hypertensive heart disease with heart failure (principal); J96.21 Acute and chronic respiratory failure with hypoxia; J96.22 Acute and chronic respiratory failure with hypercapnia; J15.1 Pneumonia due to Pseudomonas; I44.2 Atrioventricular block, complete; I50.33 Acute on chronic diastolic (congestive) heart failure; I25.10 Atherosclerotic heart disease of native coronary artery without angina pectoris; I27.20 Pulmonary hypertension, unspecified; E78.5 Hyperlipidemia, unspecified; E03.9 Hypothyroidism, unspecified; J44.9 Chronic obstructive pulmonary disease, unspecified; I35.0 Nonrheumatic aortic (valve) stenosis; Z66 Do not resuscitate; Z95.1 Presence of aortocoronary bypass graft; Z95.0 Presence of cardiac pacemaker; Z95.2 Presence of prosthetic heart valve; Z11.59 Encounter for screening for other viral diseases
CPT/HCPCS: 36415; 36600; 70450; 71045; 72170; 80048; 80053; 80076; 81003; 81015; 82550; 82553; 82805; 83605; 83735; 83880; 84443; 84484; 85025; 85610; 85730; 87070; 87077; 87186; 87205; 87635; 87797; 93005; 94640; 94660; 94762; 96361; 96374; 97116; 97162; 97166; 97530; 97535; 99285; A9270; J0692; J1650; J1940; J2060; J2270